=== PATIENT | male | born 1955 | race African-American/Black ===

== ENCOUNTER 2018-09-16 18:30 | Emergency (ER) | payer SELFPAY ==
[~2018-09-16] VITALS: Ht 175.3 cm; Wt 100.0 kg
[~2018-09-16 18:30] MED LIST: AMMO385C5 TP; CEPH750C9 PO; CLOP75TA52 PO; DOXY100T PO; FURO-92 PO; FURO40TA6 PO; GABA300C10 PO; LACT20SO13 PO; METR500T PO; OXYC5TAB3 PO; POTA10TA5 PO; RIFA550T4 PO; SPIR25TA PO; TRAM-47 PO
[2018-09-16 18:41] VITALS: BP 114/84
[2018-09-16 19:03] LABS: MEAN CORPUSCULAR HEMOGLOBIN 30.7 pg (27.5-34.5); MEAN CORPUSCULAR HGB CONC 33.6 g/dL (33.2-36.2); MEAN CORPUSCULAR VOLUME 91.5 fL (81-97); PLATELET COUNT 277 x10^3/uL (130-400); RED BLOOD COUNT 4.73 x10^6/uL (4.38-5.82); RED CELL DISTRIBUTION WIDTH 16.5 % (9.4-14.8)
[2018-09-16 19:14] LABS: ALANINE AMINOTRANSFERASE 26 U/L (12-78); ALBUMIN 2.2 g/dL (3.4-5.0); ANION GAP 5 mmol/L (5-15); CALCIUM 8.3 mg/dL (8.5-10.1); CHLORIDE 115 mmol/L (98-107); CREATININE 1.05 mg/dL (0.7-1.3)
[2018-09-16 19:18] LABS: ALKALINE PHOSPHATASE 130 U/L (45-117); BILIRUBIN,TOTAL 0.8 mg/dL (0.2-1.0); TOTAL PROTEIN 6.7 g/dL (6.4-8.2)
[2018-09-16 19:19] LABS: BASOPHILS # (AUTO) 0.03 x10^3/uL (0-0.1); BASOPHILS % (AUTO) 0 % (0-1); EOSINOPHILS # (AUTO) 3.19 x10^3/uL (0-0.4); EOSINOPHILS % (AUTO) 34 % (1-7); LYMPHOCYTES # (AUTO) 2.01 x10^3/uL (1-3.4); LYMPHOCYTES % (AUTO) 22 % (22-44); MD SCAN; MONOCYTES # (AUTO) 0.98 x10^3/uL (0.2-0.8); MONOCYTES % (AUTO) 11 % (2-9); NEUTROPHILS # (AUTO) 3.09 x10^3/uL (1.8-6.8); NEUTROPHILS % (AUTO) 33 % (42-75)
[2018-09-16] MEDS ORDERED: BACITRACIN ZINC OINT 500U/GM, 0.9 GM ONE ×2 (19:52→21:04)
--- NOTE | 2018-09-16 20:31 | NUR ---
MD aware of pts req for pain meds, no new orders recieved.
--- NOTE | 2018-09-16 20:53 | NUR ---
Ryanne gtz in [facility] - 09/16/18 at 2054 by VENITA Pt requesting "just a pill of morphine" for his pain,
--- NOTE | 2018-09-16 21:07 | NUR ---
Bilateral bandages applied to pts feet per md orders by asthma educator. Pt requesting cab voucher home.
--- NOTE | 2018-09-16 21:50 | NUR ---
Pt given warms clothes including new shirt, pants, and socks. Given taxi vocher to his given address per request. Pt encouraged to leave biohazard bag closed in ed as to not expose entire ed to bed bugs
== END 2018-09-16 21:52 | disposition home or self-care (01) ==
LOC: ED 21:46
DX: S91.101A Unspecified open wound of right great toe without damage to nail, initial encounter (principal); S91.104A Unspecified open wound of right lesser toe(s) without damage to nail, initial encounter; S91.102A Unspecified open wound of left great toe without damage to nail, initial encounter; S91.105A Unspecified open wound of left lesser toe(s) without damage to nail, initial encounter; S91.002A Unspecified open wound, left ankle, initial encounter; I11.0 Hypertensive heart disease with heart failure; I50.9 Heart failure, unspecified; Z86.79 Personal history of other diseases of the circulatory system; Z86.73 Personal history of transient ischemic attack (TIA), and cerebral infarction without residual deficits; Z59.0 Homelessness; X58.XXXA Exposure to other specified factors, initial encounter; Y93.89 Activity, other specified; Y92.89 Other specified places as the place of occurrence of the external cause; Y99.8 Other external cause status
CPT/HCPCS: 36415; 71045; 80053; 83880; 85025; 93005; 99284

== ENCOUNTER 2018-09-25 14:48 | Inpatient (IN) | payer MEDICAID, OTHER ==
[~2018-09-25] VITALS: Ht 177.8 cm; Wt 102.8 kg
[~2018-09-25 14:48] MED LIST changes: +ETOMIDATE 40 MG/20 ML ONE; +PROPOFOL 10 MG/ML, 100ML IV ONE
[2018-09-25] MEDS ORDERED: LORazepam 2 MG/ML, 1ML ONE (14:52)
[2018-09-25] MEDS ORDERED: SODIUM CHLORIDE 0.9% 1,000ML IVBOLUS ONE ×3 (15:00→16:30)
[2018-09-25] MEDS ORDERED: LORazepam 2 MG/ML, 1ML IVPush ONE ×2 (15:00→15:30)
[2018-09-25 15:15] LABS: BASOPHILS # (AUTO) 0.02 x10^3/uL (0-0.1); BASOPHILS % (AUTO) 0 % (0-1); EOSINOPHILS # (AUTO) 0.04 x10^3/uL (0-0.4); EOSINOPHILS % (AUTO) 0 % (1-7); LYMPHOCYTES # (AUTO) 0.77 x10^3/uL (1-3.4); LYMPHOCYTES % (AUTO) 6 % (22-44); MD NO; MEAN CORPUSCULAR HGB CONC 33.8 g/dL (33.2-36.2); MEAN CORPUSCULAR VOLUME 91.7 fL (81-97); MEAN PLATELET VOLUME 7.6 fL (7.4-10.4); MONOCYTES # (AUTO) 0.94 x10^3/uL (0.2-0.8); MONOCYTES % (AUTO) 7 % (2-9); NEUTROPHILS # (AUTO) 11.97 x10^3/uL (1.8-6.8); NEUTROPHILS % (AUTO) 87 % (42-75); PLATELET COUNT 188 x10^3/uL (130-400); RED BLOOD COUNT 4.71 x10^6/uL (4.38-5.82); RED CELL DISTRIBUTION WIDTH 17.2 % (9.4-14.8)
[2018-09-25 15:28] LABS: ALANINE AMINOTRANSFERASE 75 U/L (12-78); ALBUMIN 2.2 g/dL (3.4-5.0); CALCIUM 9.1 mg/dL (8.5-10.1); CHLORIDE 129 mmol/L (98-107); CREATININE 2.07 mg/dL (0.7-1.3)
[2018-09-25 15:30] LABS: INTERNATIONAL NORMALIZED RATIO 1.49 (0.93-1.1); PROTHROMBIN TIME 15.4 Seconds (9.6-11.5)
[2018-09-25] MEDS ORDERED: PLEASE ENTER HEIGHT AND WEIGHT MC SCH (15:30)
[2018-09-25 15:33] LABS: ALKALINE PHOSPHATASE 116 U/L (45-117); BILIRUBIN,TOTAL 2.1 mg/dL (0.2-1.0); TOTAL PROTEIN 7.4 g/dL (6.4-8.2); TROPONIN I 0.085 ng/mL (0.000-0.045)
[2018-09-25 15:42] LABS: ANION GAP 12 mmol/L (5-15); CREATINE KINASE, TOTAL 2205 U/L (39-308); THYROID STIMULATING HORMONE 0.896 mIU/L (0.358-3.740)
[2018-09-25 15:48] LABS: MICROSCOPIC INDICATED
[2018-09-25 15:49] LABS: CULTURE INDICATED? YES
--- NOTE | 2018-09-25 15:54 | NUR ---
BIB [facility] FOUND [facility] WAS CHECKED ON BY HOTEL MGT HAD NOT BEE SEEN FOR TWO DAYS RESPONDS TO PAIN ONLY ON ARRIVAL PUPILS PIN POINT AIRWAY CLEAR RESP MAINTAINED BY PT PT COLD TO TOUCH KNOWN ETOH USE OPEN WOUNDS BILAT FEET ARRIVE IV 22 R HAND 2ND IV PLACE L HAND WARM FLUIDS STARTED WARMING MEASURES STARTED W FULL MONITORING AND CORE TEMP ZAMORA PT TEMP ON ARRIVAL RECTAL 92.1
[2018-09-25 15:56] LABS: AMPHETAMINE SCREEN, URINE Positive (Negative); BARBITURATE SCREEN, URINE Negative (Negative); BENZODIAZEPINE SCREEN, URINE Negative (Negative); CANNABINOID SCREEN, URINE Positive (Negative); COCAINE SCREEN, URINE Negative (Negative); METHADONE SCREEN, URINE Negative (Negative); OPIATE SCREEN, URINE Negative (Negative)
--- NOTE | 2018-09-25 15:58 | NUR ---
SODIUM 168 PER LAB REPORTED TO ERP
--- NOTE | 2018-09-25 16:21 | NUR ---
REVIEWED PT BP W ERP TO HANG THIRD LTR FLUIDS
[2018-09-25] MEDS ORDERED: PHARMACOKINETIC CONSULTATION MC ONE (16:30)
[2018-09-25] MEDS ORDERED: PIPERACILLIN/TAZO/PMX 3.375GM 50 ML IVPB ONE (16:30)
[2018-09-25] MEDS ORDERED: VANCOMYCIN PER PHARMACY MC ONE (16:30)
[2018-09-25] MEDS ORDERED: VANCOMYCIN 2,000 MG in SODIUM CHLORIDE 0.9% 500 ML IV ONE (17:00)
--- NOTE | 2018-09-25 17:24 | NUR ---
HAVE ATTEMPTED ORAL CARE REVIEWED BP WITH ERP
[2018-09-25] MEDS ORDERED: NOREPINEPHRINE 4 MG in SODIUM CHLORIDE 0.9% 246 ML IV PRN ×2 (17:41→18:00)
[2018-09-25] MEDS ORDERED: SODIUM CHLORIDE 0.9% 1,000 ML IV SCH ×2 (17:52→22:00)
[2018-09-25] MEDS ORDERED: FENTANYL PF 100 MCG/2ML IV ONE (18:00)
[2018-09-25] MEDS ORDERED: ONDANSETRON 2MG/ML, 2ML IVPush PRN (18:00)
[2018-09-25] MEDS ORDERED: ETOMIDATE 20 MG/10 ML IV ONE (18:00)
[2018-09-25] MEDS ORDERED: ROCURONIUM 10 MG/ML,10ML IVPush ONE (18:00)
[2018-09-25] MEDS ORDERED: PHARMACY MAY ADJ FOR RENAL FX MC PRN (18:00)
[2018-09-25] MEDS ORDERED: FENTANYL PF 100 MCG/2ML ONE (18:03)
[2018-09-25 18:44] LABS: ANION GAP 7 mmol/L (5-15); CALCIUM 7.6 mg/dL (8.5-10.1); CHLORIDE 138 mmol/L (98-107); CREATININE 1.61 mg/dL (0.7-1.3)
--- NOTE | 2018-09-25 18:55 | NUR ---
SODIUM OF 170 REPORTED TO THE ERP ADMIT PULMONARY TO ADJUST FLUID
[2018-09-25 18:57] LABS: TROPONIN I 0.136 ng/mL (0.000-0.045)
--- NOTE | 2018-09-25 19:11 | NUR ---
AT APPROX 1740 DR SIMPSON TO THE BS DECISION TO INTUBATE AND CENTRAL LINE MADE AT 1800 PT INTUBATED 23 AT THE LIPS #8 TUBE UNDER RSI SAT MAINTAINED TO 90% THROUGHOUT THE PROCEDURE CENTRAL LINE COMPLETED AT 1830 A TRIPLE LUMEN IN THE RIJ NG 16 PLACED AT 1840 R NARE REPORT TO ULYSSES AT 1850
--- NOTE | 2018-09-25 19:46 | NUR ---
RECEIVED REPORT FROM CASSY AT 1845 AT BED SIDE PT WAS VENTED CENTRAL LINE WAS PLACED LEVOPHED WAS STARTED FOR SUPPORT BP 4 LITERS NS WAS INFUSED AT THIS TIME IV ABX VANCO WAS INFUSED VSS STABLE WITH LEVOPHED WHEN TIME FOR TRANSFER GIVEN REPORT TO MARIA C AT 1930 CRITICAL REPORT ( TROPONIN 0.136 ) REPORTED TO DR RAYMOND
[2018-09-25] MEDS ORDERED: VASOPRESSIN 100 UNIT in SODIUM CHLORIDE 0.9% 495 ML IV PRN (20:13)
[2018-09-25] MEDS ORDERED: PROPOFOL 100 ML IV PRN (20:13)
[2018-09-25] MEDS ORDERED: SENNA/DOCUSATE TABLET NG PRN (20:30)
[2018-09-25] MEDS ORDERED: SENNA 176 MG/5 ML ORAL SOL NG PRN (20:30)
[2018-09-25] MEDS ORDERED: PHARMACY MAY ADJ FOR RENAL FX MC SCH (20:30)
[2018-09-25] MEDS ORDERED: SODIUM CHLORIDE 0.9%, 250ML IV ONE (20:30)
[2018-09-25] MEDS ORDERED: LACTULOSE 20 GM/30 ML UDC NG PRN (20:30)
[2018-09-25] MEDS ORDERED: DEXTROSE 4 GM TAB.CHEW PO PRN (20:30)
[2018-09-25] MEDS ORDERED: GLUCAGON 1 MG IM PRN (20:30)
[2018-09-25] MEDS ORDERED: BISACODYL 10 MG SUPP PR PRN (20:30)
[2018-09-25] MEDS ORDERED: DEXTROSE 50%, 50ML SYRINGE IVPush PRN (20:30)
[2018-09-25] MEDS ORDERED: LIDOCAINE-MPF 1%, 2ML ENDO PRN (20:30)
[2018-09-25] MEDS: INSULIN LISPRO 100 UNITS/ML, PEN SQ-INSULIN SCH (20:58)
[2018-09-25 21:22] LABS: INTERNATIONAL NORMALIZED RATIO 1.55 (0.93-1.1)
[2018-09-25 21:23] LABS: ANION GAP 7 mmol/L (5-15); CALCIUM 7.9 mg/dL (8.5-10.1); CHLORIDE 136 mmol/L (98-107); CREATININE 1.68 mg/dL (0.7-1.3)
[2018-09-25 21:27] LABS: TROPONIN I 0.157 ng/mL (0.000-0.045)
[2018-09-25] MEDS ORDERED: SODIUM CHLORIDE 0.9%, 250ML IVBOLUS ONE (21:30)
[2018-09-25] MEDS: SODIUM CHLORIDE FLUSH 10ML SYR IVF SCH (21:35)
[2018-09-25 21:36] LABS: FREE T4 (FREE THYROXINE) 1.44 ng/dL (0.76-1.46); THYROID STIMULATING HORMONE 0.877 mIU/L (0.358-3.740)
[2018-09-25] MEDS: ALBUTEROL/IPRATROPIUM 2.5MG/0.5MG, 3 ML INLINE SCH (22:13)
[2018-09-25] MEDS ORDERED: LACTATED RINGERS 1,000 ML IVBOLUS ONE (22:30)
[2018-09-25] MEDS: AMPICILLIN/SULBACTAM 3 GM in SODIUM CHLORIDE 0.9% 100 ML IV SCH (22:44)
[2018-09-25] MEDS: NOREPINEPHRINE 4 MG in SODIUM CHLORIDE 0.9% 246 ML IV PRN (22:45)
[2018-09-26] MEDS: PROPOFOL 100 ML IV PRN ×3 (00:48→15:36)
[2018-09-26 01:45] LABS: TROPONIN I 0.185 ng/mL (0.000-0.045)
[2018-09-26 02:21] VITALS: BP 152/73
[2018-09-26] MEDS: ALBUTEROL/IPRATROPIUM 2.5MG/0.5MG, 3 ML INLINE SCH ×6 (02:29→22:32)
[2018-09-26] MEDS: NOREPINEPHRINE 4 MG in SODIUM CHLORIDE 0.9% 246 ML IV PRN ×3 (02:55→11:26)
[2018-09-26 03:17] LABS: ANION GAP 9 mmol/L (5-15); CALCIUM 7.7 mg/dL (8.5-10.1); CHLORIDE 137 mmol/L (98-107); CREATININE 1.87 mg/dL (0.7-1.3)
[2018-09-26 03:21] LABS: TROPONIN I 0.202 ng/mL (0.000-0.045)
[2018-09-26 04:00] VITALS: BP 100/42
[2018-09-26] MEDS: AMPICILLIN/SULBACTAM 3 GM in SODIUM CHLORIDE 0.9% 100 ML IV SCH (04:12)
[2018-09-26 04:52] LABS: MEAN CORPUSCULAR HEMOGLOBIN 30.9 pg (27.5-34.5); MEAN CORPUSCULAR HGB CONC 33.5 g/dL (33.2-36.2); MEAN CORPUSCULAR VOLUME 92.2 fL (81-97); MEAN PLATELET VOLUME 7.9 fL (7.4-10.4); PLATELET COUNT 164 x10^3/uL (130-400); RED BLOOD COUNT 3.97 x10^6/uL (4.38-5.82); RED CELL DISTRIBUTION WIDTH 16.8 % (9.4-14.8)
[2018-09-26 05:03] LABS: ALBUMIN 1.8 g/dL (3.4-5.0); ANION GAP 8 mmol/L (5-15); CALCIUM 7.8 mg/dL (8.5-10.1); CHLORIDE 137 mmol/L (98-107)
[2018-09-26 05:20] LABS: ALANINE AMINOTRANSFERASE 63 U/L (12-78); ALKALINE PHOSPHATASE 103 U/L (45-117); BILIRUBIN,TOTAL 1.7 mg/dL (0.2-1.0); CREATINE KINASE, TOTAL 1047 U/L (39-308); CREATININE 1.77 mg/dL (0.7-1.3); TOTAL PROTEIN 5.9 g/dL (6.4-8.2)
[2018-09-26 05:44] LABS: BASOPHILS # (AUTO) 0.04 x10^3/uL (0-0.1); BASOPHILS % (AUTO) 0 % (0-1); EOSINOPHILS # (AUTO) 0.55 x10^3/uL (0-0.4); EOSINOPHILS % (AUTO) 4 % (1-7); LYMPHOCYTES # (AUTO) 1.13 x10^3/uL (1-3.4); LYMPHOCYTES % (AUTO) 9 % (22-44); MD SCAN; MONOCYTES # (AUTO) 1.09 x10^3/uL (0.2-0.8); MONOCYTES % (AUTO) 8 % (2-9); NEUTROPHILS # (AUTO) 10.47 x10^3/uL (1.8-6.8); NEUTROPHILS % (AUTO) 79 % (42-75)
[2018-09-26] MEDS: DEXTROSE 5% 500 ML IV SCH ×2 (06:11→07:37)
[2018-09-26] MEDS: INSULIN LISPRO 100 UNITS/ML, PEN SQ-INSULIN SCH ×4 (07:00→21:00)
[2018-09-26] MEDS: SODIUM CHLORIDE FLUSH 10ML SYR IVF SCH ×2 (07:37→21:30)
[2018-09-26] MEDS: FAMOTIDINE 20 MG/2 ML IVPush SCH (07:37)
[2018-09-26] MEDS ORDERED: ZOSYN PER PHARMACY MC PRN (08:00)
[2018-09-26] MEDS ORDERED: PANTOPRAZOLE 40 MG IV IV SCH (09:00)
[2018-09-26] MEDS ORDERED: VANCOMYCIN PER PHARMACY MC PRN (09:30)
[2018-09-26] MEDS ORDERED: PHARMACOKINETIC MONITORING MC PRN (10:00)
[2018-09-26] MEDS ORDERED: VANCOMYCIN 2,000 MG in SODIUM CHLORIDE 0.9% 500 ML IV ONE (10:00)
[2018-09-26] MEDS ORDERED: PHARMACOKINETIC CONSULTATION MC ONE (10:00)
[2018-09-26] MEDS: THIAMINE 200 MG in SODIUM CHLORIDE 0.9% 50 ML IV SCH (10:03)
[2018-09-26] MEDS: PIPERACILLIN/TAZO/PMX 3.375GM 50 ML IV SCH ×3 (10:03→22:20)
[2018-09-26] MEDS: LACTATED RINGERS 1,000 ML IV SCH ×3 (10:04→21:30)
[2018-09-26 11:56] LABS: ANION GAP 8 mmol/L (5-15); CALCIUM 7.8 mg/dL (8.5-10.1); CHLORIDE 136 mmol/L (98-107); CREATININE 1.82 mg/dL (0.7-1.3)
[2018-09-26 11:57] LABS: CULTURE INDICATED? YES; MICROSCOPIC INDICATED
[2018-09-26] MEDS: FENTANYL PF 100 MCG/2ML IVPush PRN (12:25)
--- NOTE | 2018-09-26 13:05 | NUR ---
TF GOAL: w/ propofol: PROMOTE @ 65ML/HR off propofol: PROMOTE @ 70ML/HR
[2018-09-26] MEDS ORDERED: FENTANYL PF 2,500 MCG in SODIUM CHLORIDE 0.9% 200 ML IV PRN (14:00)
[2018-09-26] MEDS ORDERED: VASOPRESSIN 100 UNIT in SODIUM CHLORIDE 0.9% 495 ML IV PRN (15:30)
[2018-09-26] MEDS ORDERED: SODIUM CHLORIDE 0.9% 1,000 ML IV SCH (17:52)
[2018-09-26] MEDS: NOREPINEPHRINE 8 MG in SODIUM CHLORIDE 0.9% 242 ML IV PRN (18:05)
[2018-09-26] MEDS: HYDROCORTISONE 100 MG INJ. IVPush SCH (18:05)
[2018-09-26] MEDS: HEPARIN 5,000 UNITS/ML, 1ML SQ SCH (18:06)
[2018-09-26] MEDS ORDERED: HYDROCORTISONE 100 MG INJ. IVPush SCH (21:00)
[2018-09-27] MEDS: HYDROCORTISONE 100 MG INJ. IVPush SCH ×4 (00:41→18:14)
[2018-09-27] MEDS: HEPARIN 5,000 UNITS/ML, 1ML SQ SCH ×3 (02:17→18:14)
[2018-09-27] MEDS: ALBUTEROL/IPRATROPIUM 2.5MG/0.5MG, 3 ML INLINE SCH ×6 (02:28→22:40)
[2018-09-27] MEDS: PIPERACILLIN/TAZO/PMX 3.375GM 50 ML IV SCH ×4 (03:43→20:50)
[2018-09-27 04:00] VITALS: BP 109/46
[2018-09-27 04:18] LABS: MEAN CORPUSCULAR HEMOGLOBIN 30.6 pg (27.5-34.5); MEAN CORPUSCULAR HGB CONC 33.5 g/dL (33.2-36.2); MEAN CORPUSCULAR VOLUME 91.4 fL (81-97); MEAN PLATELET VOLUME 7.9 fL (7.4-10.4); PLATELET COUNT 126 x10^3/uL (130-400); RED BLOOD COUNT 3.94 x10^6/uL (4.38-5.82); RED CELL DISTRIBUTION WIDTH 17.9 % (9.4-14.8)
[2018-09-27 04:27] LABS: MD YES
[2018-09-27 04:30] LABS: <PLATELET ESTIMATE> DECREASED; <PLT MORPHOLOGY> NORMAL PLT MORPH; <RBC MORPHOLOGY> NORMAL; BANDS%(MANUAL) 3 % (0-7); LYMPHS% (MANUAL) 5 % (22-44); MONOS% (MANUAL) 6 % (2-9); SEGS% (MANUAL) 86 % (42-75)
[2018-09-27 04:35] LABS: TROPONIN I 0.419 ng/mL (0.000-0.045); VANCOMYCIN,RANDOM 27.4 mcg/mL
[2018-09-27] MEDS: LACTATED RINGERS 1,000 ML IV SCH ×2 (06:07→12:12)
[2018-09-27 06:38] LABS: ALBUMIN 1.7 g/dL (3.4-5.0); ANION GAP 9 mmol/L (5-15); CALCIUM 8.1 mg/dL (8.5-10.1); CHLORIDE 134 mmol/L (98-107)
[2018-09-27 06:41] LABS: ALANINE AMINOTRANSFERASE 69 U/L (12-78); ALKALINE PHOSPHATASE 91 U/L (45-117); BILIRUBIN,TOTAL 1.9 mg/dL (0.2-1.0); CREATININE 1.88 mg/dL (0.7-1.3); TOTAL PROTEIN 6.1 g/dL (6.4-8.2)
[2018-09-27] MEDS: INSULIN LISPRO 100 UNITS/ML, PEN SQ-INSULIN SCH (07:00)
[2018-09-27] MEDS: THIAMINE 200 MG in SODIUM CHLORIDE 0.9% 50 ML IV SCH (09:33)
[2018-09-27] MEDS: FAMOTIDINE 20 MG/2 ML IVPush SCH (09:33)
[2018-09-27] MEDS: SODIUM CHLORIDE FLUSH 10ML SYR IVF SCH ×2 (09:33→20:49)
[2018-09-27] MEDS ORDERED: PIPERONYL BUTOXIDE/PYRETHRINS SHAMPOO TP SCH (10:30)
[2018-09-27] MEDS ORDERED: VANCOMYCIN 2,000 MG in SODIUM CHLORIDE 0.9% 500 ML IV ONE (11:00)
[2018-09-27] MEDS: NOREPINEPHRINE 8 MG in SODIUM CHLORIDE 0.9% 242 ML IV PRN (15:24)
[2018-09-27] MEDS: PROPOFOL 100 ML IV PRN ×2 (16:12→22:54)
[2018-09-28] MEDS: HYDROCORTISONE 100 MG INJ. IVPush SCH ×2 (00:14→05:42)
[2018-09-28] MEDS: HEPARIN 5,000 UNITS/ML, 1ML SQ SCH ×4 (01:01→19:52)
[2018-09-28] MEDS: PROPOFOL 100 ML IV PRN ×2 (03:29→09:19)
[2018-09-28] MEDS: PIPERACILLIN/TAZO/PMX 3.375GM 50 ML IV SCH ×4 (03:29→22:12)
[2018-09-28] MEDS: ALBUTEROL/IPRATROPIUM 2.5MG/0.5MG, 3 ML INLINE SCH ×6 (03:38→22:20)
[2018-09-28 03:48] LABS: ANION GAP 6 mmol/L (5-15); CALCIUM 8.3 mg/dL (8.5-10.1); CHLORIDE 138 mmol/L (98-107); TRIGLYCERIDES 140 mg/dL (50-200)
[2018-09-28 04:27] VITALS: BP 101/50
[2018-09-28 06:05] LABS: MD YES; MEAN CORPUSCULAR HEMOGLOBIN 31.1 pg (27.5-34.5); MEAN CORPUSCULAR HGB CONC 33.8 g/dL (33.2-36.2); MEAN CORPUSCULAR VOLUME 92.2 fL (81-97); PLATELET COUNT 97 x10^3/uL (130-400); RED CELL DISTRIBUTION WIDTH 17.8 % (9.4-14.8)
[2018-09-28 06:08] LABS: ANISOCYTOSIS 1+; BAND#(MANUAL) 0.39 x10^3/uL; BANDS%(MANUAL) 3 % (0-7); LYMPH#(MANUAL) 1.04 x10^3/uL (1-3.4); LYMPHS% (MANUAL) 8 % (22-44); MONOS#(MANUAL) 0.78 x10^3/uL (0.3-2.7); MONOS% (MANUAL) 6 % (2-9); NRBC % (MANUAL) 2 % (0-1); POLYCHROMASIA 1+; SEG#(MANUAL) 10.79 x10^3/uL (1.8-6.8); SEGS% (MANUAL) 83 % (42-75)
[2018-09-28 06:09] LABS: <PLATELET ESTIMATE> DECREASED; <PLT MORPHOLOGY> NORMAL PLT MORPH
[2018-09-28 06:46] LABS: ALANINE AMINOTRANSFERASE 57 U/L (12-78); ALBUMIN 1.7 g/dL (3.4-5.0); ANION GAP 5 mmol/L (5-15); CALCIUM 8.3 mg/dL (8.5-10.1); CHLORIDE 138 mmol/L (98-107); CREATININE 1.87 mg/dL (0.7-1.3)
[2018-09-28 06:49] LABS: ALKALINE PHOSPHATASE 83 U/L (45-117); BILIRUBIN,TOTAL 1.5 mg/dL (0.2-1.0)
[2018-09-28] MEDS: POTASSIUM CHLORIDE 20 MEQ in D5%-0.2% NACL 1,000 ML IV SCH ×2 (07:58→19:42)
[2018-09-28] MEDS ORDERED: LACTATED RINGERS 1,000 ML IV SCH (08:30)
[2018-09-28] MEDS: SODIUM CHLORIDE FLUSH 10ML SYR IVF SCH ×2 (09:15→21:03)
[2018-09-28] MEDS: THIAMINE 200 MG in SODIUM CHLORIDE 0.9% 50 ML IV SCH ×2 (09:15→13:19)
[2018-09-28] MEDS: FAMOTIDINE 20 MG/2 ML IVPush SCH (09:16)
[2018-09-28] MEDS ORDERED: VANCOMYCIN 2,000 MG in SODIUM CHLORIDE 0.9% 500 ML IV ONE (11:00)
[2018-09-28] MEDS: DIAZEPAM 5 MG/ML, 10ML VIAL IVPush SCH ×4 (11:26→21:03)
[2018-09-28] MEDS: CEFAZOLIN 2,000 MG in SODIUM CHLORIDE 0.9% 50 ML IV SCH ×2 (13:18→19:52)
[2018-09-28] MEDS ORDERED: FUROSEMIDE 40 MG/4 ML IV ONE (15:30)
[2018-09-28 17:04] LABS: HIT RESULT POSITIVE (NEGATIVE)
[2018-09-28] MEDS: FENTANYL PF 100 MCG/2ML IVPush PRN (23:19)
[2018-09-29] MEDS: PROPOFOL 100 ML IV PRN (00:08)
[2018-09-29] MEDS: DIAZEPAM 5 MG/ML, 10ML VIAL IVPush SCH ×6 (01:19→20:53)
[2018-09-29] MEDS: ALBUTEROL/IPRATROPIUM 2.5MG/0.5MG, 3 ML INLINE SCH ×6 (02:16→23:00)
[2018-09-29] MEDS: PIPERACILLIN/TAZO/PMX 3.375GM 50 ML IV SCH (04:06)
[2018-09-29 04:28] LABS: MEAN CORPUSCULAR HGB CONC 33.4 g/dL (33.2-36.2); MEAN CORPUSCULAR VOLUME 92.9 fL (81-97); MEAN PLATELET VOLUME 8.1 fL (7.4-10.4); PLATELET COUNT 95 x10^3/uL (130-400); RED BLOOD COUNT 3.48 x10^6/uL (4.38-5.82); RED CELL DISTRIBUTION WIDTH 18.1 % (9.4-14.8)
[2018-09-29 04:32] LABS: ANION GAP 5 mmol/L (5-15); CHLORIDE 136 mmol/L (98-107)
[2018-09-29] MEDS: CEFAZOLIN 2,000 MG in SODIUM CHLORIDE 0.9% 50 ML IV SCH (04:47)
[2018-09-29] MEDS: POTASSIUM CHLORIDE 20 MEQ in D5%-0.2% NACL 1,000 ML IV SCH ×3 (05:28→17:03)
[2018-09-29] MEDS: NOREPINEPHRINE 8 MG in SODIUM CHLORIDE 0.9% 242 ML IV PRN (05:29)
[2018-09-29 05:40] LABS: BASOPHILS # (AUTO) 0.06 x10^3/uL (0-0.1); BASOPHILS % (AUTO) 1 % (0-1); EOSINOPHILS # (AUTO) 0.13 x10^3/uL (0-0.4); EOSINOPHILS % (AUTO) 1 % (1-7); LYMPHOCYTES # (AUTO) 1.11 x10^3/uL (1-3.4); LYMPHOCYTES % (AUTO) 9 % (22-44); MD SCAN; MONOCYTES # (AUTO) 0.81 x10^3/uL (0.2-0.8); MONOCYTES % (AUTO) 7 % (2-9); NEUTROPHILS # (AUTO) 10.45 x10^3/uL (1.8-6.8); NEUTROPHILS % (AUTO) 83 % (42-75)
[2018-09-29] MEDS: DEXMEDETOMIDINE 1,000 MCG in SODIUM CHLORIDE 0.9% 240 ML IV PRN (07:44)
[2018-09-29] MEDS: FONDAPARINUX 2.5 MG/0.5 ML SQ SCH (08:39)
[2018-09-29] MEDS: THIAMINE 200 MG in SODIUM CHLORIDE 0.9% 50 ML IV SCH ×2 (09:00→09:03)
[2018-09-29] MEDS: ERTAPENEM 1 GM in SODIUM CHLORIDE 0.9% 50 ML IV SCH (09:04)
[2018-09-29] MEDS: FAMOTIDINE 20 MG/2 ML IVPush SCH (09:04)
[2018-09-29] MEDS: SODIUM CHLORIDE FLUSH 10ML SYR IVF SCH ×2 (09:04→20:52)
[2018-09-29] MEDS: ALBUMIN HUMAN 25% 100 ML IV SCH ×3 (09:04→23:50)
[2018-09-30] MEDS: DIAZEPAM 5 MG/ML, 10ML VIAL IVPush SCH ×2 (01:09→04:18)
[2018-09-30] MEDS: ALBUTEROL/IPRATROPIUM 2.5MG/0.5MG, 3 ML INLINE SCH ×6 (02:55→22:45)
[2018-09-30] MEDS: POTASSIUM CHLORIDE 20 MEQ in D5%-0.2% NACL 1,000 ML IV SCH (04:22)
[2018-09-30 05:44] LABS: ANION GAP 6 mmol/L (5-15); CALCIUM 7.6 mg/dL (8.5-10.1); CHLORIDE 132 mmol/L (98-107)
[2018-09-30 05:45] LABS: CREATININE 2.27 mg/dL (0.7-1.3)
[2018-09-30 06:13] LABS: MD YES; MEAN CORPUSCULAR HEMOGLOBIN 31.8 pg (27.5-34.5); MEAN CORPUSCULAR HGB CONC 34.2 g/dL (33.2-36.2); MEAN CORPUSCULAR VOLUME 92.9 fL (81-97); MEAN PLATELET VOLUME 8.7 fL (7.4-10.4); PLATELET COUNT 74 x10^3/uL (130-400); RED CELL DISTRIBUTION WIDTH 17.8 % (9.4-14.8)
[2018-09-30 06:16] LABS: <PLATELET ESTIMATE> DECREASED; <PLT MORPHOLOGY> NORMAL PLT MORPH; ANISOCYTOSIS 1+; BAND#(MANUAL) 0.08 x10^3/uL; BANDS%(MANUAL) 1 % (0-7); EOS% (MANUAL) 6 % (1-7); LYMPH#(MANUAL) 3.49 x10^3/uL (1-3.4); LYMPHS% (MANUAL) 42 % (22-44); MONOS#(MANUAL) 0.83 x10^3/uL (0.3-2.7); MONOS% (MANUAL) 10 % (2-9); NRBC % (MANUAL) 1 % (0-1); SEGS% (MANUAL) 41 % (42-75)
[2018-09-30 06:17] LABS: POLYCHROMASIA 1+
[2018-09-30] MEDS: ALBUMIN HUMAN 25% 100 ML IV SCH ×2 (08:05→15:47)
[2018-09-30] MEDS: FAMOTIDINE 20 MG/2 ML IVPush SCH (08:05)
[2018-09-30] MEDS: DEXTROSE 5% 1,000 ML IV SCH ×2 (08:05→17:22)
[2018-09-30] MEDS: ERTAPENEM 1 GM in SODIUM CHLORIDE 0.9% 50 ML IV SCH (08:53)
[2018-09-30] MEDS: THIAMINE 200 MG in SODIUM CHLORIDE 0.9% 50 ML IV SCH (10:10)
[2018-09-30] MEDS: FONDAPARINUX 2.5 MG/0.5 ML SQ SCH (10:10)
[2018-09-30] MEDS: SODIUM CHLORIDE FLUSH 10ML SYR IVF SCH ×2 (10:11→20:16)
[2018-09-30] MEDS ORDERED: PIPERONYL BUTOXIDE/PYRETHRINS SHAMPOO TP SCH (15:00)
[2018-09-30] MEDS: DEXMEDETOMIDINE 1,000 MCG in SODIUM CHLORIDE 0.9% 240 ML IV PRN (15:18)
[2018-10-01] MEDS: ALBUMIN HUMAN 25% 100 ML IV SCH ×3 (00:18→16:04)
[2018-10-01] MEDS: ALBUTEROL/IPRATROPIUM 2.5MG/0.5MG, 3 ML INLINE SCH ×6 (02:30→22:31)
[2018-10-01] MEDS: DEXTROSE 5% 1,000 ML IV SCH ×3 (02:30→18:47)
[2018-10-01 05:06] LABS: ANION GAP 6 mmol/L (5-15); CALCIUM 8.1 mg/dL (8.5-10.1); CHLORIDE 127 mmol/L (98-107); CREATININE 1.82 mg/dL (0.7-1.3); TRIGLYCERIDES 56 mg/dL (50-200)
[2018-10-01 05:07] LABS: MEAN CORPUSCULAR HEMOGLOBIN 30.3 pg (27.5-34.5); MEAN CORPUSCULAR HGB CONC 32.3 g/dL (33.2-36.2); MEAN CORPUSCULAR VOLUME 93.7 fL (81-97); RED BLOOD COUNT 3.14 x10^6/uL (4.38-5.82); RED CELL DISTRIBUTION WIDTH 17.6 % (9.4-14.8)
[2018-10-01 05:50] LABS: MD YES; MEAN PLATELET VOLUME 8.9 fL (7.4-10.4); PLATELET COUNT 60 x10^3/uL (130-400)
[2018-10-01 05:52] LABS: BASOS#(MANUAL) 0.07 x10^3/uL (0-0.1); BASOS% (MANUAL) 1 % (0-1); EOS#(MANUAL) 0.95 x10^3/uL (0.0-0.4); EOS% (MANUAL) 14 % (1-7); LYMPH#(MANUAL) 2.58 x10^3/uL (1-3.4); LYMPHS% (MANUAL) 38 % (22-44); MONOS#(MANUAL) 0.41 x10^3/uL (0.3-2.7); MONOS% (MANUAL) 6 % (2-9); SEG#(MANUAL) 2.79 x10^3/uL (1.8-6.8); SEGS% (MANUAL) 41 % (42-75)
[2018-10-01 05:53] LABS: <PLATELET ESTIMATE> DECREASED; <PLT MORPHOLOGY> NORMAL PLT MORPH; ANISOCYTOSIS 1+; POLYCHROMASIA 1+
[2018-10-01] MEDS: SODIUM CHLORIDE FLUSH 10ML SYR IVF SCH ×2 (07:56→20:03)
[2018-10-01] MEDS: FAMOTIDINE 20 MG/2 ML IVPush SCH (07:56)
[2018-10-01] MEDS ORDERED: FUROSEMIDE 40 MG/4 ML IV ONE (08:00)
[2018-10-01] MEDS: FONDAPARINUX 2.5 MG/0.5 ML SQ SCH (09:33)
[2018-10-01] MEDS: THIAMINE 200 MG in SODIUM CHLORIDE 0.9% 50 ML IV SCH (09:33)
[2018-10-01] MEDS: LACTULOSE 20 GM/30 ML UDC PO SCH ×2 (09:33→20:03)
[2018-10-01] MEDS: POTASSIUM CHLORIDE 20 MEQ PACKET PO SCH ×2 (09:47→20:03)
[2018-10-01] MEDS: ERTAPENEM 1 GM in SODIUM CHLORIDE 0.9% 50 ML IV SCH (09:57)
[2018-10-01] MEDS: DEXMEDETOMIDINE 1,000 MCG in SODIUM CHLORIDE 0.9% 240 ML IV PRN (15:06)
[2018-10-01] MEDS: FENTANYL PF 100 MCG/2ML IVPush PRN (20:16)
[2018-10-02] MEDS: ALBUMIN HUMAN 25% 100 ML IV SCH ×3 (00:36→17:02)
[2018-10-02] MEDS: ALBUTEROL/IPRATROPIUM 2.5MG/0.5MG, 3 ML INLINE SCH ×6 (02:36→22:00)
[2018-10-02] MEDS: DEXTROSE 5% 1,000 ML IV SCH (02:46)
[2018-10-02] MEDS: DEXMEDETOMIDINE 1,000 MCG in SODIUM CHLORIDE 0.9% 240 ML IV PRN (02:47)
[2018-10-02 05:11] LABS: MEAN CORPUSCULAR HEMOGLOBIN 32.1 pg (27.5-34.5); MEAN CORPUSCULAR HGB CONC 34.3 g/dL (33.2-36.2); MEAN CORPUSCULAR VOLUME 93.7 fL (81-97); RED BLOOD COUNT 2.96 x10^6/uL (4.38-5.82); RED CELL DISTRIBUTION WIDTH 17.6 % (9.4-14.8)
[2018-10-02 05:29] LABS: ANION GAP 8 mmol/L (5-15); CHLORIDE 122 mmol/L (98-107); CREATININE 1.46 mg/dL (0.7-1.3)
[2018-10-02 05:33] LABS: MD YES; MEAN PLATELET VOLUME 9.4 fL (7.4-10.4); PLATELET COUNT 61 x10^3/uL (130-400)
[2018-10-02 05:38] LABS: ANISOCYTOSIS 1+; EOS#(MANUAL) 0.76 x10^3/uL (0.0-0.4); EOS% (MANUAL) 12 % (1-7); LYMPH#(MANUAL) 1.32 x10^3/uL (1-3.4); LYMPHS% (MANUAL) 21 % (22-44); MONOS#(MANUAL) 0.69 x10^3/uL (0.3-2.7); MONOS% (MANUAL) 11 % (2-9); MYELOCYTES# (MANUAL) 0.13 x10^3/uL (0-0); MYELOCYTES% (MANUAL) 2 % (0-0); POLYCHROMASIA 1+; REACTIVE LYMPHS # (MANUAL) 0.06 x10^3/uL (0-0); REACTIVE LYMPHS % (MANUAL) 1 % (0-0); SEG#(MANUAL) 3.34 x10^3/uL (1.8-6.8); SEGS% (MANUAL) 53 % (42-75)
[2018-10-02 05:39] LABS: <PLATELET ESTIMATE> DECREASED; LARGE PLATELETS 1+
[2018-10-02] MEDS: FENTANYL PF 100 MCG/2ML IVPush PRN (06:45)
[2018-10-02] MEDS ORDERED: DEXTROSE 5% 1,000 ML IV SCH (07:00)
[2018-10-02] MEDS ORDERED: FUROSEMIDE 20 MG/2 ML ONE (07:48)
[2018-10-02] MEDS: ERTAPENEM 1 GM in SODIUM CHLORIDE 0.9% 50 ML IV SCH (08:03)
[2018-10-02] MEDS: FUROSEMIDE 20 MG/2 ML IV SCH ×2 (08:03→17:02)
[2018-10-02] MEDS: PROPOFOL 100 ML IV PRN ×5 (08:21→23:55)
[2018-10-02] MEDS: FONDAPARINUX 2.5 MG/0.5 ML SQ SCH (08:30)
[2018-10-02] MEDS: LACTULOSE 20 GM/30 ML UDC PO SCH ×2 (08:30→21:20)
[2018-10-02] MEDS: POTASSIUM CHLORIDE 10% 40 MEQ/30 ML UDC PO SCH ×2 (08:30→21:20)
[2018-10-02] MEDS: FAMOTIDINE 20 MG/2 ML IVPush SCH (08:31)
[2018-10-02] MEDS: SODIUM CHLORIDE FLUSH 10ML SYR IVF SCH ×2 (08:31→21:21)
[2018-10-02] MEDS: QUETIAPINE 25MG TABLET NG SCH ×2 (09:00→17:02)
[2018-10-02] MEDS: THIAMINE 200 MG in SODIUM CHLORIDE 0.9% 50 ML IV SCH (10:41)
[2018-10-02] MEDS ORDERED: GADOBUTROL 10 MMOL/10 ML PFS ONE (15:19)
[2018-10-02] MEDS: FAMOTIDINE 20 MG TABLET PO SCH (21:20)
[2018-10-03] MEDS: ALBUMIN HUMAN 25% 100 ML IV SCH ×3 (01:41→17:21)
[2018-10-03] MEDS: QUETIAPINE 25MG TABLET NG SCH ×3 (01:42→17:21)
[2018-10-03] MEDS: ALBUTEROL/IPRATROPIUM 2.5MG/0.5MG, 3 ML INLINE SCH ×6 (02:00→22:00)
[2018-10-03 04:38] LABS: MEAN CORPUSCULAR HEMOGLOBIN 31.8 pg (27.5-34.5); MEAN CORPUSCULAR HGB CONC 33.9 g/dL (33.2-36.2); MEAN CORPUSCULAR VOLUME 93.8 fL (81-97); MEAN PLATELET VOLUME 9.6 fL (7.4-10.4); PLATELET COUNT 72 x10^3/uL (130-400); RED BLOOD COUNT 2.86 x10^6/uL (4.38-5.82); RED CELL DISTRIBUTION WIDTH 17.2 % (9.4-14.8)
[2018-10-03] MEDS: PROPOFOL 100 ML IV PRN ×4 (04:38→20:59)
[2018-10-03 04:41] LABS: ANION GAP 4 mmol/L (5-15); CALCIUM 8.1 mg/dL (8.5-10.1); CHLORIDE 124 mmol/L (98-107)
[2018-10-03 04:43] LABS: CREATININE 1.41 mg/dL (0.7-1.3)
[2018-10-03 05:37] LABS: MD YES
[2018-10-03 05:39] LABS: EOS#(MANUAL) 0.67 x10^3/uL (0.0-0.4); EOS% (MANUAL) 9 % (1-7); LYMPH#(MANUAL) 1.11 x10^3/uL (1-3.4); LYMPHS% (MANUAL) 15 % (22-44); MONOS#(MANUAL) 0.44 x10^3/uL (0.3-2.7); MONOS% (MANUAL) 6 % (2-9); SEG#(MANUAL) 5.18 x10^3/uL (1.8-6.8); SEGS% (MANUAL) 70 % (42-75)
[2018-10-03 05:40] LABS: <PLATELET ESTIMATE> DECREASED; ANISOCYTOSIS 1+; POLYCHROMASIA 1+
[2018-10-03 05:41] LABS: LARGE PLATELETS 1+
[2018-10-03] MEDS ORDERED: FUROSEMIDE 20 MG/2 ML IV ONE (08:30)
[2018-10-03] MEDS: ERTAPENEM 1 GM in SODIUM CHLORIDE 0.9% 50 ML IV SCH (09:36)
[2018-10-03] MEDS: FONDAPARINUX 2.5 MG/0.5 ML SQ SCH (09:36)
[2018-10-03] MEDS: FAMOTIDINE 20 MG TABLET PO SCH (09:37)
[2018-10-03] MEDS: SODIUM CHLORIDE FLUSH 10ML SYR IVF SCH ×2 (09:37→20:59)
[2018-10-03] MEDS: THIAMINE 200 MG in SODIUM CHLORIDE 0.9% 50 ML IV SCH (10:32)
[2018-10-03] MEDS: LACTULOSE 20 GM/30 ML UDC PO SCH (10:32)
[2018-10-03] MEDS: DEXTROSE 5% 1,000 ML IV SCH (10:32)
[2018-10-03] MEDS: METOCLOPRAMIDE 5 MG/ML, 2ML IVPush SCH (20:57)
[2018-10-03] MEDS: FUROSEMIDE 40 MG/4 ML IV SCH (20:59)
[2018-10-04] MEDS: PROPOFOL 100 ML IV PRN ×4 (00:20→23:35)
[2018-10-04] MEDS: DEXTROSE 5% 1,000 ML IV SCH ×2 (00:28→09:32)
[2018-10-04] MEDS: ALBUMIN HUMAN 25% 100 ML IV SCH ×3 (01:36→21:31)
[2018-10-04] MEDS: QUETIAPINE 25MG TABLET NG SCH ×2 (01:37→09:30)
[2018-10-04] MEDS: ALBUTEROL/IPRATROPIUM 2.5MG/0.5MG, 3 ML INLINE SCH ×6 (02:00→22:00)
[2018-10-04] MEDS: METOCLOPRAMIDE 5 MG/ML, 2ML IVPush SCH ×5 (04:06→23:41)
[2018-10-04 04:37] LABS: MEAN CORPUSCULAR HEMOGLOBIN 31.7 pg (27.5-34.5); MEAN CORPUSCULAR HGB CONC 33.7 g/dL (33.2-36.2); MEAN CORPUSCULAR VOLUME 93.9 fL (81-97); MEAN PLATELET VOLUME 9.5 fL (7.4-10.4); PLATELET COUNT 81 x10^3/uL (130-400); RED BLOOD COUNT 2.81 x10^6/uL (4.38-5.82); RED CELL DISTRIBUTION WIDTH 17.2 % (9.4-14.8)
[2018-10-04 04:43] LABS: ANION GAP 5 mmol/L (5-15); CALCIUM 8.5 mg/dL (8.5-10.1); CHLORIDE 121 mmol/L (98-107); CREATININE 1.17 mg/dL (0.7-1.3); TRIGLYCERIDES 77 mg/dL (50-200)
[2018-10-04 05:11] LABS: MD YES
[2018-10-04 05:15] LABS: <PLATELET ESTIMATE> DECREASED; ANISOCYTOSIS 1+; BAND#(MANUAL) 0.17 x10^3/uL; BANDS%(MANUAL) 3 % (0-7); EOS#(MANUAL) 0.61 x10^3/uL (0.0-0.4); EOS% (MANUAL) 11 % (1-7); LYMPH#(MANUAL) 0.94 x10^3/uL (1-3.4); LYMPHS% (MANUAL) 17 % (22-44); MONOS#(MANUAL) 0.22 x10^3/uL (0.3-2.7); MONOS% (MANUAL) 4 % (2-9); POLYCHROMASIA 1+; REACTIVE LYMPHS # (MANUAL) 0.06 x10^3/uL (0-0); REACTIVE LYMPHS % (MANUAL) 1 % (0-0); SEG#(MANUAL) 3.52 x10^3/uL (1.8-6.8); SEGS% (MANUAL) 64 % (42-75)
[2018-10-04 05:16] LABS: LARGE PLATELETS 1+
[2018-10-04] MEDS: PANTOPRAZOLE 40 MG IV IVPush SCH (09:30)
[2018-10-04] MEDS: ERTAPENEM 1 GM in SODIUM CHLORIDE 0.9% 50 ML IV SCH (09:30)
[2018-10-04] MEDS: FUROSEMIDE 40 MG/4 ML IV SCH ×2 (09:30→21:31)
[2018-10-04] MEDS: FONDAPARINUX 2.5 MG/0.5 ML SQ SCH (09:31)
[2018-10-04] MEDS: SODIUM CHLORIDE FLUSH 10ML SYR IVF SCH ×2 (09:31→21:31)
[2018-10-04] MEDS: THIAMINE 200 MG in SODIUM CHLORIDE 0.9% 50 ML IV SCH (10:38)
[2018-10-04] MEDS ORDERED: QUETIAPINE 25MG TABLET NG SCH (21:00)
[2018-10-05] MEDS: ALBUTEROL/IPRATROPIUM 2.5MG/0.5MG, 3 ML INLINE SCH ×6 (02:00→22:00)
[2018-10-05 04:08] LABS: MEAN CORPUSCULAR HEMOGLOBIN 31.9 pg (27.5-34.5); MEAN CORPUSCULAR HGB CONC 34.3 g/dL (33.2-36.2); MEAN CORPUSCULAR VOLUME 93.1 fL (81-97); MEAN PLATELET VOLUME 9.2 fL (7.4-10.4); PLATELET COUNT 94 x10^3/uL (130-400); RED BLOOD COUNT 2.71 x10^6/uL (4.38-5.82); RED CELL DISTRIBUTION WIDTH 17.1 % (9.4-14.8)
[2018-10-05 04:16] LABS: ANION GAP 6 mmol/L (5-15); CALCIUM 8.4 mg/dL (8.5-10.1); CHLORIDE 116 mmol/L (98-107)
[2018-10-05 04:19] LABS: CREATININE 1.24 mg/dL (0.7-1.3)
[2018-10-05 04:27] LABS: MD YES
[2018-10-05 04:32] LABS: ANISOCYTOSIS 1+; BAND#(MANUAL) 0.06 x10^3/uL; BANDS%(MANUAL) 1 % (0-7); EOS#(MANUAL) 0.67 x10^3/uL (0.0-0.4); EOS% (MANUAL) 11 % (1-7); LYMPHS% (MANUAL) 23 % (22-44); MONOS#(MANUAL) 0.55 x10^3/uL (0.3-2.7); MONOS% (MANUAL) 9 % (2-9); POLYCHROMASIA 1+; SEG#(MANUAL) 3.42 x10^3/uL (1.8-6.8); SEGS% (MANUAL) 56 % (42-75)
[2018-10-05 04:33] LABS: <PLATELET ESTIMATE> DECREASED; LARGE PLATELETS 1+
[2018-10-05] MEDS: DEXTROSE 5% 1,000 ML IV SCH ×2 (04:39→15:28)
[2018-10-05] MEDS: PROPOFOL 100 ML IV PRN ×3 (04:40→21:58)
[2018-10-05] MEDS: METOCLOPRAMIDE 5 MG/ML, 2ML IVPush SCH ×3 (04:57→21:57)
[2018-10-05] MEDS: ERTAPENEM 1 GM in SODIUM CHLORIDE 0.9% 50 ML IV SCH (07:44)
[2018-10-05] MEDS: SODIUM CHLORIDE FLUSH 10ML SYR IVF SCH ×2 (09:05→21:59)
[2018-10-05] MEDS: ALBUMIN HUMAN 25% 100 ML IV SCH ×2 (09:05→21:57)
[2018-10-05] MEDS: FONDAPARINUX 2.5 MG/0.5 ML SQ SCH (09:05)
[2018-10-05] MEDS: PANTOPRAZOLE 40 MG IV IVPush SCH (09:05)
[2018-10-05] MEDS: FUROSEMIDE 40 MG/4 ML IV SCH ×2 (09:05→23:09)
[2018-10-05] MEDS: THIAMINE 200 MG in SODIUM CHLORIDE 0.9% 50 ML IV SCH (09:19)
[2018-10-06] MEDS: ALBUTEROL/IPRATROPIUM 2.5MG/0.5MG, 3 ML INLINE SCH ×6 (02:00→22:00)
[2018-10-06] MEDS: DEXTROSE 5% 1,000 ML IV SCH ×2 (03:15→14:50)
[2018-10-06] MEDS: PROPOFOL 100 ML IV PRN (03:41)
[2018-10-06] MEDS: METOCLOPRAMIDE 5 MG/ML, 2ML IVPush SCH ×4 (04:17→22:46)
[2018-10-06 04:43] LABS: MEAN CORPUSCULAR HEMOGLOBIN 30.9 pg (27.5-34.5); MEAN CORPUSCULAR HGB CONC 33.2 g/dL (33.2-36.2); MEAN CORPUSCULAR VOLUME 93.2 fL (81-97); MEAN PLATELET VOLUME 8.9 fL (7.4-10.4); PLATELET COUNT 124 x10^3/uL (130-400); RED BLOOD COUNT 2.72 x10^6/uL (4.38-5.82); RED CELL DISTRIBUTION WIDTH 17.3 % (9.4-14.8)
[2018-10-06 05:51] LABS: MD YES
[2018-10-06 05:54] LABS: ANISOCYTOSIS 1+; EOS#(MANUAL) 0.49 x10^3/uL (0.0-0.4); EOS% (MANUAL) 9 % (1-7); LYMPH#(MANUAL) 1.67 x10^3/uL (1-3.4); LYMPHS% (MANUAL) 31 % (22-44); MONOS#(MANUAL) 0.27 x10^3/uL (0.3-2.7); MONOS% (MANUAL) 5 % (2-9); POLYCHROMASIA 1+; SEG#(MANUAL) 2.97 x10^3/uL (1.8-6.8); SEGS% (MANUAL) 55 % (42-75)
[2018-10-06 05:55] LABS: <PLATELET ESTIMATE> DECREASED; LARGE PLATELETS 1+
[2018-10-06] MEDS: SODIUM CHLORIDE FLUSH 10ML SYR IVF SCH ×2 (08:21→19:35)
[2018-10-06] MEDS: ALBUMIN HUMAN 25% 100 ML IV SCH ×2 (08:22→19:33)
[2018-10-06] MEDS: FUROSEMIDE 40 MG/4 ML IV SCH ×2 (08:23→21:11)
[2018-10-06] MEDS: FONDAPARINUX 2.5 MG/0.5 ML SQ SCH (08:23)
[2018-10-06] MEDS: PANTOPRAZOLE 40 MG IV IVPush SCH (08:23)
[2018-10-06] MEDS: THIAMINE 200 MG in SODIUM CHLORIDE 0.9% 50 ML IV SCH (10:02)
[2018-10-06] MEDS: ERTAPENEM 1 GM in SODIUM CHLORIDE 0.9% 50 ML IV SCH (10:02)
[2018-10-07] MEDS: ALBUTEROL/IPRATROPIUM 2.5MG/0.5MG, 3 ML INLINE SCH ×6 (02:07→22:47)
[2018-10-07] MEDS: DEXTROSE 5% 1,000 ML IV SCH (02:29)
[2018-10-07] MEDS: METOCLOPRAMIDE 5 MG/ML, 2ML IVPush SCH ×2 (04:54→10:00)
[2018-10-07 04:59] LABS: MEAN CORPUSCULAR HEMOGLOBIN 30.5 pg (27.5-34.5); MEAN CORPUSCULAR HGB CONC 32.7 g/dL (33.2-36.2); MEAN CORPUSCULAR VOLUME 93.4 fL (81-97); MEAN PLATELET VOLUME 8.3 fL (7.4-10.4); PLATELET COUNT 147 x10^3/uL (130-400); RED BLOOD COUNT 2.79 x10^6/uL (4.38-5.82); RED CELL DISTRIBUTION WIDTH 16.9 % (9.4-14.8)
[2018-10-07 05:16] LABS: FIO2 40 %
[2018-10-07 05:57] LABS: BASOPHILS # (AUTO) 0.01 x10^3/uL (0-0.1); BASOPHILS % (AUTO) 0 % (0-1); EOSINOPHILS # (AUTO) 0.45 x10^3/uL (0-0.4); EOSINOPHILS % (AUTO) 8 % (1-7); LYMPHOCYTES # (AUTO) 0.75 x10^3/uL (1-3.4); LYMPHOCYTES % (AUTO) 13 % (22-44); MD SCAN; MONOCYTES # (AUTO) 0.75 x10^3/uL (0.2-0.8); MONOCYTES % (AUTO) 13 % (2-9); NEUTROPHILS % (AUTO) 67 % (42-75)
[2018-10-07] MEDS: PANTOPRAZOLE 40 MG IV IVPush SCH (09:22)
[2018-10-07] MEDS: ALBUMIN HUMAN 25% 100 ML IV SCH ×2 (09:22→20:52)
[2018-10-07] MEDS: FONDAPARINUX 2.5 MG/0.5 ML SQ SCH (09:22)
[2018-10-07] MEDS: SODIUM CHLORIDE FLUSH 10ML SYR IVF SCH ×2 (09:23→20:53)
[2018-10-07] MEDS: ERTAPENEM 1 GM in SODIUM CHLORIDE 0.9% 50 ML IV SCH (09:23)
[2018-10-07] MEDS ORDERED: DEXTROSE 5% 1,000 ML IV SCH (09:30)
[2018-10-07] MEDS: THIAMINE 200 MG in SODIUM CHLORIDE 0.9% 50 ML IV SCH (09:32)
[2018-10-07] MEDS: FUROSEMIDE 100 MG in SODIUM CHLORIDE 0.9% 90 ML IV SCH (09:32)
--- NOTE | 2018-10-07 10:27 | NUR ---
10/07 TF GOAL: w/ propofol: PROMOTE @ 85ML/HR off propofol: PROMOTE @ 90ML/HR Abdulaziz BID via feeding tube
[2018-10-07 13:38] LABS: CHLORIDE 110 mmol/L (98-107)
[2018-10-07 13:46] LABS: ANION GAP 6 mmol/L (5-15); CALCIUM 8.7 mg/dL (8.5-10.1); CREATININE 1.03 mg/dL (0.7-1.3)
[2018-10-07] MEDS ORDERED: KSCALE TO 4.0 IV ONE (14:00)
[2018-10-07] MEDS ORDERED: POTASSIUM CHLORIDE PMX 100 ML IV ONE ×2 (14:00→14:30)
[2018-10-07] MEDS ORDERED: POTASSIUM CHLORIDE 40 MEQ in SODIUM CHLORIDE 0.9% 500 ML IV ONE (15:00)
[2018-10-07 18:17] LABS: ANION GAP 4 mmol/L (5-15); CALCIUM 7.5 mg/dL (8.5-10.1); CHLORIDE 113 mmol/L (98-107); CREATININE 0.91 mg/dL (0.7-1.3)
[2018-10-07] MEDS: KSCALE TO 4.0 IV SCH (18:30)
[2018-10-07] MEDS ORDERED: KSCALE TO 4.0 IV SCH (18:30)
[2018-10-07] MEDS: THIAMINE 100MG TABLET PO SCH (20:53)
[2018-10-08] MEDS: KSCALE TO 4.0 IV SCH (00:30)
[2018-10-08 01:33] LABS: ANION GAP 6 mmol/L (5-15); CHLORIDE 110 mmol/L (98-107); CREATININE 1.04 mg/dL (0.7-1.3)
[2018-10-08] MEDS: ALBUTEROL/IPRATROPIUM 2.5MG/0.5MG, 3 ML INLINE SCH ×6 (02:12→22:13)
[2018-10-08] MEDS ORDERED: POTASSIUM CHLORIDE 10 MEQ in SODIUM CHLORIDE 0.9% 250 ML IV ONE (02:30)
[2018-10-08] MEDS: FUROSEMIDE 100 MG in SODIUM CHLORIDE 0.9% 90 ML IV SCH (02:32)
[2018-10-08 07:03] LABS: ANION GAP 7 mmol/L (5-15); CALCIUM 8.7 mg/dL (8.5-10.1); CHLORIDE 107 mmol/L (98-107); CREATININE 0.89 mg/dL (0.7-1.3)
[2018-10-08 07:07] LABS: BASOPHILS # (AUTO) 0.01 x10^3/uL (0-0.1); BASOPHILS % (AUTO) 0 % (0-1); EOSINOPHILS # (AUTO) 0.56 x10^3/uL (0-0.4); EOSINOPHILS % (AUTO) 9 % (1-7); LYMPHOCYTES # (AUTO) 0.77 x10^3/uL (1-3.4); LYMPHOCYTES % (AUTO) 13 % (22-44); MD NO; MEAN CORPUSCULAR HEMOGLOBIN 30.2 pg (27.5-34.5); MEAN CORPUSCULAR HGB CONC 32.2 g/dL (33.2-36.2); MEAN CORPUSCULAR VOLUME 93.8 fL (81-97); MONOCYTES # (AUTO) 0.82 x10^3/uL (0.2-0.8); MONOCYTES % (AUTO) 14 % (2-9); NEUTROPHILS # (AUTO) 3.86 x10^3/uL (1.8-6.8); NEUTROPHILS % (AUTO) 64 % (42-75); PLATELET COUNT 174 x10^3/uL (130-400); RED BLOOD COUNT 2.93 x10^6/uL (4.38-5.82); RED CELL DISTRIBUTION WIDTH 18.1 % (9.4-14.8)
[2018-10-08] MEDS: ERTAPENEM 1 GM in SODIUM CHLORIDE 0.9% 50 ML IV SCH (09:32)
[2018-10-08] MEDS: FONDAPARINUX 2.5 MG/0.5 ML SQ SCH (09:32)
[2018-10-08] MEDS: POTASSIUM CHLORIDE 10% 40 MEQ/30 ML UDC PO SCH ×2 (09:32→20:31)
[2018-10-08] MEDS: PANTOPRAZOLE 40 MG IV IVPush SCH (09:32)
[2018-10-08] MEDS: METOLAZONE 5 MG TABLET PO SCH ×2 (09:42→17:50)
[2018-10-08] MEDS: THIAMINE 100MG TABLET PO SCH ×2 (09:44→20:31)
[2018-10-08] MEDS: FUROSEMIDE 40 MG/4 ML IV SCH ×2 (09:44→17:50)
[2018-10-08] MEDS: ALBUMIN HUMAN 25% 100 ML IV SCH ×2 (09:45→20:31)
[2018-10-08] MEDS: SODIUM CHLORIDE FLUSH 10ML SYR IVF SCH ×2 (09:57→20:31)
[2018-10-08 13:48] LABS: ANION GAP 3 mmol/L (5-15); CHLORIDE 108 mmol/L (98-107); CREATININE 0.96 mg/dL (0.7-1.3)
[2018-10-08 19:06] LABS: ANION GAP 5 mmol/L (5-15); CALCIUM 9.5 mg/dL (8.5-10.1); CHLORIDE 105 mmol/L (98-107); CREATININE 0.93 mg/dL (0.7-1.3)
[2018-10-08] MEDS: FENTANYL PF 100 MCG/2ML IVPush PRN (20:31)
[2018-10-09] MEDS: ALBUTEROL/IPRATROPIUM 2.5MG/0.5MG, 3 ML INLINE SCH ×3 (02:14→10:20)
[2018-10-09 04:27] LABS: BASOPHILS # (AUTO) 0.01 x10^3/uL (0-0.1); BASOPHILS % (AUTO) 0 % (0-1); EOSINOPHILS # (AUTO) 0.54 x10^3/uL (0-0.4); EOSINOPHILS % (AUTO) 10 % (1-7); LYMPHOCYTES # (AUTO) 0.94 x10^3/uL (1-3.4); LYMPHOCYTES % (AUTO) 17 % (22-44); MD NO; MEAN CORPUSCULAR HEMOGLOBIN 30.2 pg (27.5-34.5); MEAN CORPUSCULAR HGB CONC 31.7 g/dL (33.2-36.2); MEAN CORPUSCULAR VOLUME 95.5 fL (81-97); MEAN PLATELET VOLUME 7.5 fL (7.4-10.4); MONOCYTES # (AUTO) 0.54 x10^3/uL (0.2-0.8); MONOCYTES % (AUTO) 10 % (2-9); NEUTROPHILS # (AUTO) 3.64 x10^3/uL (1.8-6.8); NEUTROPHILS % (AUTO) 64 % (42-75); PLATELET COUNT 180 x10^3/uL (130-400); RED BLOOD COUNT 2.87 x10^6/uL (4.38-5.82); RED CELL DISTRIBUTION WIDTH 17.4 % (9.4-14.8)
[2018-10-09] MEDS: FUROSEMIDE 40 MG/4 ML IV SCH ×2 (07:42→17:36)
[2018-10-09] MEDS: METOLAZONE 5 MG TABLET PO SCH ×2 (07:42→17:36)
[2018-10-09] MEDS: SODIUM CHLORIDE FLUSH 10ML SYR IVF SCH ×2 (09:42→21:24)
[2018-10-09] MEDS: PANTOPRAZOLE 40 MG IV IVPush SCH (09:43)
[2018-10-09] MEDS: FONDAPARINUX 2.5 MG/0.5 ML SQ SCH (09:43)
[2018-10-09] MEDS: THIAMINE 100MG TABLET PO SCH ×2 (09:43→21:24)
[2018-10-09] MEDS: CARVEDILOL 6.25 MG TABLET PO SCH ×2 (09:43→17:36)
[2018-10-09] MEDS: ERTAPENEM 1 GM in SODIUM CHLORIDE 0.9% 50 ML IV SCH (09:43)
[2018-10-09] MEDS: ALBUMIN HUMAN 25% 100 ML IV SCH ×2 (09:43→21:24)
[2018-10-09] MEDS ORDERED: ALBUTEROL SULFATE 2.5 MG/3 ML NPPB PRN (14:00)
[2018-10-10 04:42] LABS: BASOPHILS # (AUTO) 0.03 x10^3/uL (0-0.1); BASOPHILS % (AUTO) 1 % (0-1); EOSINOPHILS # (AUTO) 0.62 x10^3/uL (0-0.4); EOSINOPHILS % (AUTO) 11 % (1-7); LYMPHOCYTES # (AUTO) 0.94 x10^3/uL (1-3.4); LYMPHOCYTES % (AUTO) 17 % (22-44); MD NO; MEAN CORPUSCULAR HEMOGLOBIN 31.9 pg (27.5-34.5); MEAN CORPUSCULAR HGB CONC 34.1 g/dL (33.2-36.2); MEAN CORPUSCULAR VOLUME 93.7 fL (81-97); MEAN PLATELET VOLUME 7.3 fL (7.4-10.4); MONOCYTES # (AUTO) 0.56 x10^3/uL (0.2-0.8); MONOCYTES % (AUTO) 10 % (2-9); NEUTROPHILS # (AUTO) 3.32 x10^3/uL (1.8-6.8); NEUTROPHILS % (AUTO) 61 % (42-75); PLATELET COUNT 231 x10^3/uL (130-400); RED BLOOD COUNT 3.11 x10^6/uL (4.38-5.82); RED CELL DISTRIBUTION WIDTH 17.2 % (9.4-14.8)
[2018-10-10 04:46] LABS: ANION GAP 5 mmol/L (5-15); CALCIUM 10.1 mg/dL (8.5-10.1); CHLORIDE 101 mmol/L (98-107)
[2018-10-10 04:55] LABS: CREATININE 0.96 mg/dL (0.7-1.3); TRIGLYCERIDES 59 mg/dL (50-200)
[2018-10-10] MEDS: CARVEDILOL 6.25 MG TABLET PO SCH ×2 (06:15→17:06)
[2018-10-10] MEDS: POTASSIUM CHLORIDE 20 MEQ TAB.ER.PRT PO SCH ×2 (08:53→17:06)
[2018-10-10] MEDS: PANTOPRAZOLE 40 MG IV IVPush SCH (08:53)
[2018-10-10] MEDS: SODIUM CHLORIDE FLUSH 10ML SYR IVF SCH ×2 (08:53→20:28)
[2018-10-10] MEDS: METOLAZONE 5 MG TABLET PO SCH ×2 (08:53→17:06)
[2018-10-10] MEDS: AcetaZOLAMIDE INJ 500 MG IVPush SCH ×2 (08:53→20:28)
[2018-10-10] MEDS: CEFTRIAXONE PMX 2GM/50ML 50 ML IV SCH (08:53)
[2018-10-10] MEDS: FONDAPARINUX 2.5 MG/0.5 ML SQ SCH (08:54)
[2018-10-10] MEDS ORDERED: SCOPOLAMINE PATCH, 1.5MG PATCH.TD72 TD SCH (09:00)
[2018-10-10] MEDS: ZIPRASIDONE 20 MG INJ IM PRN (15:20)
[2018-10-11 04:35] LABS: MEAN CORPUSCULAR HEMOGLOBIN 30.3 pg (27.5-34.5); MEAN CORPUSCULAR HGB CONC 32.4 g/dL (33.2-36.2); MEAN CORPUSCULAR VOLUME 93.7 fL (81-97); MEAN PLATELET VOLUME 7.5 fL (7.4-10.4); PLATELET COUNT 255 x10^3/uL (130-400); RED BLOOD COUNT 3.25 x10^6/uL (4.38-5.82); RED CELL DISTRIBUTION WIDTH 17.8 % (9.4-14.8)
[2018-10-11 04:42] LABS: ANION GAP 6 mmol/L (5-15); CALCIUM 9.8 mg/dL (8.5-10.1); CHLORIDE 104 mmol/L (98-107); CREATININE 0.94 mg/dL (0.7-1.3)
[2018-10-11 05:01] LABS: BASOPHILS # (AUTO) 0.02 x10^3/uL (0-0.1); BASOPHILS % (AUTO) 0 % (0-1); EOSINOPHILS # (AUTO) 0.66 x10^3/uL (0-0.4); EOSINOPHILS % (AUTO) 11 % (1-7); LYMPHOCYTES # (AUTO) 1.15 x10^3/uL (1-3.4); LYMPHOCYTES % (AUTO) 20 % (22-44); MD SCAN; MONOCYTES # (AUTO) 0.51 x10^3/uL (0.2-0.8); MONOCYTES % (AUTO) 9 % (2-9); NEUTROPHILS # (AUTO) 3.49 x10^3/uL (1.8-6.8); NEUTROPHILS % (AUTO) 60 % (42-75)
[2018-10-11] MEDS: CARVEDILOL 6.25 MG TABLET PO SCH ×2 (06:00→18:06)
[2018-10-11] MEDS: METOLAZONE 5 MG TABLET PO SCH ×2 (08:00→18:06)
[2018-10-11] MEDS: AcetaZOLAMIDE INJ 500 MG IVPush SCH (08:00)
[2018-10-11] MEDS: SODIUM CHLORIDE FLUSH 10ML SYR IVF SCH ×2 (08:01→20:43)
[2018-10-11] MEDS: PANTOPRAZOLE 40 MG IV IVPush SCH (08:01)
[2018-10-11] MEDS: FONDAPARINUX 2.5 MG/0.5 ML SQ SCH (08:01)
[2018-10-11] MEDS: CEFTRIAXONE PMX 2GM/50ML 50 ML IV SCH (08:17)
--- NOTE | 2018-10-11 14:31 | NUR ---
ELECTRICIAN YARD Recommend; NPO status with ongoing use of short term means of nurtition and hydration -Vigilant oral care Addendum: 10/11/18 at 1431 by SOM STEWART Amended: Links added.
[2018-10-12] MEDS: ZIPRASIDONE 20 MG INJ IM PRN (01:53)
[2018-10-12 03:00] LABS: BASOPHILS # (AUTO) 0.03 x10^3/uL (0-0.1); BASOPHILS % (AUTO) 1 % (0-1); EOSINOPHILS # (AUTO) 0.64 x10^3/uL (0-0.4); EOSINOPHILS % (AUTO) 12 % (1-7); LYMPHOCYTES # (AUTO) 1.26 x10^3/uL (1-3.4); LYMPHOCYTES % (AUTO) 23 % (22-44); MD NO; MEAN CORPUSCULAR HEMOGLOBIN 31.3 pg (27.5-34.5); MEAN CORPUSCULAR HGB CONC 33.3 g/dL (33.2-36.2); MEAN CORPUSCULAR VOLUME 94.1 fL (81-97); MEAN PLATELET VOLUME 7.4 fL (7.4-10.4); MONOCYTES # (AUTO) 0.77 x10^3/uL (0.2-0.8); MONOCYTES % (AUTO) 14 % (2-9); NEUTROPHILS # (AUTO) 2.76 x10^3/uL (1.8-6.8); NEUTROPHILS % (AUTO) 51 % (42-75); PLATELET COUNT 255 x10^3/uL (130-400); RED BLOOD COUNT 3.08 x10^6/uL (4.38-5.82); RED CELL DISTRIBUTION WIDTH 17.6 % (9.4-14.8)
[2018-10-12 03:04] LABS: ANION GAP 7 mmol/L (5-15); CALCIUM 9.7 mg/dL (8.5-10.1); CHLORIDE 110 mmol/L (98-107); CREATININE 1.08 mg/dL (0.7-1.3)
[2018-10-12] MEDS: CARVEDILOL 6.25 MG TABLET PO SCH ×2 (09:18→17:32)
[2018-10-12] MEDS: METOLAZONE 5 MG TABLET PO SCH ×2 (09:18→17:32)
[2018-10-12] MEDS: FUROSEMIDE 20 MG TABLET PO SCH (09:18)
[2018-10-12] MEDS: FONDAPARINUX 2.5 MG/0.5 ML SQ SCH (09:18)
[2018-10-12] MEDS: CEFTRIAXONE PMX 2GM/50ML 50 ML IV SCH (09:19)
[2018-10-12] MEDS: SODIUM CHLORIDE FLUSH 10ML SYR IVF SCH ×2 (09:19→20:36)
[2018-10-12 15:36] LABS: FREE T4 (FREE THYROXINE) 1.23 ng/dL (0.76-1.46); THYROID STIMULATING HORMONE 3.09 mIU/L (0.358-3.740)
[2018-10-12] MEDS: CEFAZOLIN 2,000 MG in SODIUM CHLORIDE 0.9% 50 ML IV SCH ×2 (15:38→22:06)
[2018-10-12] MEDS: FENTANYL PF 100 MCG/2ML IVPush PRN (17:27)
[2018-10-12] MEDS ORDERED: LACTULOSE 10 GM/15 ML UDC ONE (17:28)
[2018-10-12] MEDS ORDERED: LACTULOSE 20 GM/30 ML UDC NG SCH (21:00)
[2018-10-13 04:17] LABS: BASOPHILS # (AUTO) 0.02 x10^3/uL (0-0.1); BASOPHILS % (AUTO) 0 % (0-1); EOSINOPHILS % (AUTO) 12 % (1-7); LYMPHOCYTES # (AUTO) 1.37 x10^3/uL (1-3.4); LYMPHOCYTES % (AUTO) 26 % (22-44); MD NO; MEAN CORPUSCULAR HEMOGLOBIN 31.2 pg (27.5-34.5); MEAN CORPUSCULAR HGB CONC 33.1 g/dL (33.2-36.2); MEAN CORPUSCULAR VOLUME 94.2 fL (81-97); MEAN PLATELET VOLUME 7.4 fL (7.4-10.4); MONOCYTES # (AUTO) 0.64 x10^3/uL (0.2-0.8); MONOCYTES % (AUTO) 12 % (2-9); NEUTROPHILS # (AUTO) 2.63 x10^3/uL (1.8-6.8); NEUTROPHILS % (AUTO) 50 % (42-75); PLATELET COUNT 277 x10^3/uL (130-400); RED CELL DISTRIBUTION WIDTH 17.8 % (9.4-14.8)
[2018-10-13 04:22] LABS: ALANINE AMINOTRANSFERASE 121 U/L (12-78); ALBUMIN 4.2 g/dL (3.4-5.0); ANION GAP 6 mmol/L (5-15); CALCIUM 9.6 mg/dL (8.5-10.1); CHLORIDE 110 mmol/L (98-107); CREATININE 1.08 mg/dL (0.7-1.3); TRIGLYCERIDES 30 mg/dL (50-200)
[2018-10-13 04:24] LABS: ALKALINE PHOSPHATASE 83 U/L (45-117); BILIRUBIN,TOTAL 0.9 mg/dL (0.2-1.0); TOTAL PROTEIN 8.6 g/dL (6.4-8.2)
[2018-10-13] MEDS: LACTULOSE 20 GM/30 ML UDC NG SCH ×4 (04:44→21:45)
[2018-10-13] MEDS: CEFAZOLIN 2,000 MG in SODIUM CHLORIDE 0.9% 50 ML IV SCH ×3 (05:31→21:44)
[2018-10-13] MEDS: CARVEDILOL 6.25 MG TABLET PO SCH ×2 (05:31→18:33)
[2018-10-13] MEDS: METOLAZONE 5 MG TABLET PO SCH ×2 (07:49→18:33)
[2018-10-13] MEDS: FUROSEMIDE 20 MG TABLET PO SCH (09:51)
[2018-10-13] MEDS: FONDAPARINUX 2.5 MG/0.5 ML SQ SCH (09:51)
[2018-10-13] MEDS: SODIUM CHLORIDE FLUSH 10ML SYR IVF SCH ×2 (21:00→21:16)
[2018-10-14 04:40] LABS: BASOPHILS # (AUTO) 0.02 x10^3/uL (0-0.1); BASOPHILS % (AUTO) 0 % (0-1); EOSINOPHILS # (AUTO) 0.56 x10^3/uL (0-0.4); EOSINOPHILS % (AUTO) 11 % (1-7); LYMPHOCYTES # (AUTO) 1.27 x10^3/uL (1-3.4); LYMPHOCYTES % (AUTO) 24 % (22-44); MD NO; MEAN CORPUSCULAR HEMOGLOBIN 31.3 pg (27.5-34.5); MEAN CORPUSCULAR HGB CONC 33.2 g/dL (33.2-36.2); MEAN PLATELET VOLUME 7.2 fL (7.4-10.4); MONOCYTES # (AUTO) 0.71 x10^3/uL (0.2-0.8); MONOCYTES % (AUTO) 14 % (2-9); NEUTROPHILS # (AUTO) 2.66 x10^3/uL (1.8-6.8); NEUTROPHILS % (AUTO) 51 % (42-75); PLATELET COUNT 263 x10^3/uL (130-400); RED BLOOD COUNT 3.42 x10^6/uL (4.38-5.82); RED CELL DISTRIBUTION WIDTH 18.4 % (9.4-14.8)
[2018-10-14 04:41] LABS: HCT (SEDRATE) 32.8 % (39.2-51.8)
[2018-10-14 04:53] LABS: ALANINE AMINOTRANSFERASE 173 U/L (12-78); ALBUMIN 4.2 g/dL (3.4-5.0); ANION GAP 6 mmol/L (5-15); CALCIUM 10.4 mg/dL (8.5-10.1); CHLORIDE 110 mmol/L (98-107); CREATININE 1.14 mg/dL (0.7-1.3)
[2018-10-14 05:00] LABS: ALKALINE PHOSPHATASE 94 U/L (45-117); BILIRUBIN,TOTAL 0.9 mg/dL (0.2-1.0); TOTAL PROTEIN 8.9 g/dL (6.4-8.2)
[2018-10-14] MEDS: CARVEDILOL 6.25 MG TABLET PO SCH ×2 (05:41→16:50)
[2018-10-14] MEDS: CEFAZOLIN 2,000 MG in SODIUM CHLORIDE 0.9% 50 ML IV SCH ×3 (05:41→22:13)
[2018-10-14] MEDS: METOLAZONE 5 MG TABLET PO SCH ×2 (07:40→16:50)
[2018-10-14] MEDS: FONDAPARINUX 2.5 MG/0.5 ML SQ SCH (07:41)
[2018-10-14] MEDS ORDERED: LACTULOSE 20 GM/30 ML UDC ONE (08:40)
[2018-10-14] MEDS ORDERED: LACTULOSE 10 GM/15 ML UDC ONE (08:41)
[2018-10-14] MEDS ORDERED: RIFAXIMIN 550 MG TABLET ONE (08:45)
[2018-10-14] MEDS: LACTULOSE 20 GM/30 ML UDC NG SCH ×3 (08:46→22:09)
[2018-10-14] MEDS: SODIUM CHLORIDE FLUSH 10ML SYR IVF SCH ×2 (08:46→20:55)
[2018-10-14] MEDS: FUROSEMIDE 20 MG TABLET PO SCH (08:46)
[2018-10-14] MEDS: RIFAXIMIN 550 MG TABLET PO SCH ×2 (08:46→22:10)
[2018-10-14] MEDS ORDERED: QUETIAPINE 25MG TABLET ONE (13:00)
[2018-10-14] MEDS: QUETIAPINE 25MG TABLET PO SCH ×2 (13:14→22:10)
--- NOTE | 2018-10-14 15:03 | NUR ---
AUDIT MGR Recommend; NPO status with ongoing use of short term means of nurtition and hydration -Vigilant oral care Addendum: 10/14/18 at 1503 by SOM STEWART Amended: Links added.
[2018-10-14] MEDS: FENTANYL PF 100 MCG/2ML IVPush PRN (20:55)
[2018-10-15 04:52] LABS: ANION GAP 4 mmol/L (5-15); CALCIUM 10.3 mg/dL (8.5-10.1); CHLORIDE 113 mmol/L (98-107); CREATININE 1.05 mg/dL (0.7-1.3)
[2018-10-15 05:31] LABS: BASOPHILS # (AUTO) 0.04 x10^3/uL (0-0.1); BASOPHILS % (AUTO) 1 % (0-1); EOSINOPHILS # (AUTO) 0.56 x10^3/uL (0-0.4); EOSINOPHILS % (AUTO) 11 % (1-7); LYMPHOCYTES # (AUTO) 1.26 x10^3/uL (1-3.4); LYMPHOCYTES % (AUTO) 25 % (22-44); MD NO; MEAN CORPUSCULAR HEMOGLOBIN 31.7 pg (27.5-34.5); MEAN CORPUSCULAR HGB CONC 33.3 g/dL (33.2-36.2); MEAN CORPUSCULAR VOLUME 95.2 fL (81-97); MONOCYTES # (AUTO) 0.99 x10^3/uL (0.2-0.8); MONOCYTES % (AUTO) 20 % (2-9); NEUTROPHILS # (AUTO) 2.16 x10^3/uL (1.8-6.8); NEUTROPHILS % (AUTO) 43 % (42-75); PLATELET COUNT 254 x10^3/uL (130-400); RED BLOOD COUNT 3.57 x10^6/uL (4.38-5.82); RED CELL DISTRIBUTION WIDTH 19.3 % (9.4-14.8)
[2018-10-15] MEDS: CEFAZOLIN 2,000 MG in SODIUM CHLORIDE 0.9% 50 ML IV SCH ×3 (05:46→22:56)
[2018-10-15] MEDS: CARVEDILOL 6.25 MG TABLET PO SCH ×2 (05:50→18:12)
[2018-10-15] MEDS: SODIUM CHLORIDE FLUSH 10ML SYR IVF SCH ×2 (09:00→20:46)
[2018-10-15] MEDS: QUETIAPINE 25MG TABLET PO SCH ×2 (09:05→20:28)
[2018-10-15] MEDS: METOLAZONE 5 MG TABLET PO SCH ×2 (09:08→18:01)
[2018-10-15] MEDS: FUROSEMIDE 20 MG TABLET PO SCH (09:08)
[2018-10-15] MEDS: RIFAXIMIN 550 MG TABLET PO SCH ×2 (09:09→20:28)
[2018-10-15] MEDS: FONDAPARINUX 2.5 MG/0.5 ML SQ SCH (09:13)
[2018-10-15] MEDS: LACTULOSE 20 GM/30 ML UDC NG SCH ×3 (09:13→20:28)
--- NOTE | 2018-10-15 10:52 | NUR ---
TF GOAL: PROMOTE @ 90ML/HR
[2018-10-15] MEDS: FENTANYL PF 100 MCG/2ML IVPush PRN (20:28)
[2018-10-15] MEDS ORDERED: HALOPERIDOL 5 MG/ML IV ONE (20:30)
[2018-10-16 04:43] LABS: BASOPHILS # (AUTO) 0.04 x10^3/uL (0-0.1); BASOPHILS % (AUTO) 1 % (0-1); EOSINOPHILS # (AUTO) 0.47 x10^3/uL (0-0.4); EOSINOPHILS % (AUTO) 9 % (1-7); LYMPHOCYTES # (AUTO) 1.64 x10^3/uL (1-3.4); LYMPHOCYTES % (AUTO) 31 % (22-44); MD NO; MEAN CORPUSCULAR HEMOGLOBIN 30.8 pg (27.5-34.5); MEAN CORPUSCULAR HGB CONC 32.3 g/dL (33.2-36.2); MEAN CORPUSCULAR VOLUME 95.4 fL (81-97); MEAN PLATELET VOLUME 7.1 fL (7.4-10.4); MONOCYTES # (AUTO) 0.99 x10^3/uL (0.2-0.8); MONOCYTES % (AUTO) 19 % (2-9); NEUTROPHILS % (AUTO) 40 % (42-75); PLATELET COUNT 267 x10^3/uL (130-400); RED BLOOD COUNT 3.82 x10^6/uL (4.38-5.82)
[2018-10-16 04:56] LABS: ANION GAP 4 mmol/L (5-15); CALCIUM 10.4 mg/dL (8.5-10.1); CHLORIDE 113 mmol/L (98-107); CREATININE 1.17 mg/dL (0.7-1.3); TRIGLYCERIDES 46 mg/dL (50-200)
[2018-10-16] MEDS: CEFAZOLIN 2,000 MG in SODIUM CHLORIDE 0.9% 50 ML IV SCH ×3 (05:26→23:06)
[2018-10-16] MEDS: CARVEDILOL 6.25 MG TABLET PO SCH ×2 (05:26→17:26)
[2018-10-16] MEDS: LACTULOSE 20 GM/30 ML UDC NG SCH ×2 (09:28→19:48)
[2018-10-16] MEDS: LACTOBACILLUS CHEW TABLET PO SCH ×3 (09:29→19:48)
[2018-10-16] MEDS: FUROSEMIDE 20 MG TABLET PO SCH (09:29)
[2018-10-16] MEDS: RIFAXIMIN 550 MG TABLET PO SCH ×2 (09:29→19:48)
[2018-10-16] MEDS: SODIUM CHLORIDE FLUSH 10ML SYR IVF SCH ×2 (09:30→19:48)
[2018-10-16] MEDS: FONDAPARINUX 2.5 MG/0.5 ML SQ SCH (10:54)
[2018-10-16 12:03] VITALS: BP 137/87
[2018-10-16 13:37] VITALS: BP 118/80
--- NOTE | 2018-10-16 13:52 | NUR ---
REPAIR SPECIALIST recommend MIRYAM/ NTL -1:1 assist -NO STRAWS -Up for all meals -Meds crushed Addendum: 10/16/18 at [address] Amended: Links added.
[2018-10-16 20:13] VITALS: BP 153/87
[2018-10-17 01:54] VITALS: BP 149/77
[2018-10-17 05:04] LABS: MEAN CORPUSCULAR HEMOGLOBIN 30.5 pg (27.5-34.5); MEAN CORPUSCULAR HGB CONC 32.2 g/dL (33.2-36.2); MEAN CORPUSCULAR VOLUME 94.6 fL (81-97); MEAN PLATELET VOLUME 7.5 fL (7.4-10.4); PLATELET COUNT 228 x10^3/uL (130-400); RED BLOOD COUNT 3.72 x10^6/uL (4.38-5.82); RED CELL DISTRIBUTION WIDTH 18.3 % (9.4-14.8)
[2018-10-17 05:10] LABS: ANION GAP 6 mmol/L (5-15); CHLORIDE 116 mmol/L (98-107); CREATININE 1.22 mg/dL (0.7-1.3)
[2018-10-17] MEDS: CARVEDILOL 6.25 MG TABLET PO SCH ×2 (05:12→18:18)
[2018-10-17 05:57] LABS: BASOPHILS # (AUTO) 0.04 x10^3/uL (0-0.1); BASOPHILS % (AUTO) 1 % (0-1); EOSINOPHILS # (AUTO) 0.41 x10^3/uL (0-0.4); EOSINOPHILS % (AUTO) 8 % (1-7); LYMPHOCYTES # (AUTO) 1.54 x10^3/uL (1-3.4); LYMPHOCYTES % (AUTO) 32 % (22-44); MD SCAN; MONOCYTES # (AUTO) 0.87 x10^3/uL (0.2-0.8); MONOCYTES % (AUTO) 18 % (2-9); NEUTROPHILS # (AUTO) 1.99 x10^3/uL (1.8-6.8); NEUTROPHILS % (AUTO) 41 % (42-75)
[2018-10-17] MEDS: RIFAXIMIN 550 MG TABLET PO SCH ×2 (08:13→21:03)
[2018-10-17] MEDS: LACTULOSE 20 GM/30 ML UDC NG SCH ×2 (08:13→21:03)
[2018-10-17] MEDS: FUROSEMIDE 20 MG TABLET PO SCH (08:13)
[2018-10-17] MEDS: CEFAZOLIN 2,000 MG in SODIUM CHLORIDE 0.9% 50 ML IV SCH ×3 (08:13→23:05)
[2018-10-17] MEDS: SODIUM CHLORIDE FLUSH 10ML SYR IVF SCH ×2 (08:14→21:02)
[2018-10-17] MEDS: LACTOBACILLUS CHEW TABLET PO SCH ×3 (08:14→21:03)
[2018-10-17 08:30] VITALS: BP 143/81
[2018-10-17] MEDS: FONDAPARINUX 2.5 MG/0.5 ML SQ SCH (09:00)
[2018-10-17 13:10] VITALS: BP 120/72
[2018-10-17 20:39] VITALS: BP 164/98
[2018-10-18 01:28] VITALS: BP 131/80
[2018-10-18 05:07] LABS: BASOPHILS # (AUTO) 0.04 x10^3/uL (0-0.1); BASOPHILS % (AUTO) 1 % (0-1); EOSINOPHILS # (AUTO) 0.32 x10^3/uL (0-0.4); EOSINOPHILS % (AUTO) 6 % (1-7); LYMPHOCYTES # (AUTO) 1.79 x10^3/uL (1-3.4); LYMPHOCYTES % (AUTO) 34 % (22-44); MD NO; MEAN CORPUSCULAR HGB CONC 32.8 g/dL (33.2-36.2); MEAN CORPUSCULAR VOLUME 94.5 fL (81-97); MEAN PLATELET VOLUME 7.3 fL (7.4-10.4); MONOCYTES # (AUTO) 0.79 x10^3/uL (0.2-0.8); MONOCYTES % (AUTO) 15 % (2-9); NEUTROPHILS # (AUTO) 2.29 x10^3/uL (1.8-6.8); NEUTROPHILS % (AUTO) 44 % (42-75); PLATELET COUNT 239 x10^3/uL (130-400); RED BLOOD COUNT 3.86 x10^6/uL (4.38-5.82); RED CELL DISTRIBUTION WIDTH 19.2 % (9.4-14.8)
[2018-10-18 05:19] LABS: CHLORIDE 118 mmol/L (98-107)
[2018-10-18 05:23] LABS: ANION GAP 6 mmol/L (5-15); CALCIUM 10.3 mg/dL (8.5-10.1); CREATININE 1.04 mg/dL (0.7-1.3)
[2018-10-18] MEDS: CARVEDILOL 6.25 MG TABLET PO SCH ×2 (05:37→17:45)
[2018-10-18] MEDS ORDERED: POTASSIUM CHLORIDE 20 MEQ TAB.ER.PRT PO ONE (07:30)
[2018-10-18] MEDS: CEFAZOLIN 2,000 MG in SODIUM CHLORIDE 0.9% 50 ML IV SCH ×3 (07:39→22:56)
[2018-10-18] MEDS: DEXTROSE 5% 1,000 ML IV SCH ×2 (08:03→21:43)
[2018-10-18] MEDS: SODIUM CHLORIDE FLUSH 10ML SYR IVF SCH ×2 (08:04→21:43)
[2018-10-18] MEDS: LACTULOSE 20 GM/30 ML UDC NG SCH (08:11)
[2018-10-18 08:30] VITALS: BP 119/76
[2018-10-18 08:58] LABS: ANION GAP 5 mmol/L (5-15); CALCIUM 10.1 mg/dL (8.5-10.1); CHLORIDE 118 mmol/L (98-107); CREATININE 1.09 mg/dL (0.7-1.3)
[2018-10-18] MEDS: FONDAPARINUX 2.5 MG/0.5 ML SQ SCH (11:48)
[2018-10-18] MEDS: FUROSEMIDE 20 MG TABLET PO SCH (11:48)
[2018-10-18] MEDS: RIFAXIMIN 550 MG TABLET PO SCH ×2 (11:48→21:43)
[2018-10-18] MEDS: LACTOBACILLUS CHEW TABLET PO SCH ×3 (11:49→21:43)
[2018-10-18] MEDS: ACETAMINOPHEN 325 MG TABLET PO PRN (12:44)
[2018-10-18 13:30] VITALS: BP 133/82
[2018-10-18 14:57] LABS: ANION GAP 3 mmol/L (5-15); CALCIUM 9.8 mg/dL (8.5-10.1); CHLORIDE 118 mmol/L (98-107); CREATININE 1.02 mg/dL (0.7-1.3)
[2018-10-18 19:00] VITALS: BP 117/77
[2018-10-18] MEDS: LACTULOSE 20 GM/30 ML UDC PO SCH (21:43)
[2018-10-18 23:33] LABS: ANION GAP 3 mmol/L (5-15); CALCIUM 9.9 mg/dL (8.5-10.1); CHLORIDE 116 mmol/L (98-107); CREATININE 1.15 mg/dL (0.7-1.3)
[2018-10-19 00:53] VITALS: BP 108/75
[2018-10-19 05:02] LABS: BASOPHILS # (AUTO) 0.02 x10^3/uL (0-0.1); BASOPHILS % (AUTO) 0 % (0-1); EOSINOPHILS # (AUTO) 0.32 x10^3/uL (0-0.4); EOSINOPHILS % (AUTO) 6 % (1-7); LYMPHOCYTES # (AUTO) 2.03 x10^3/uL (1-3.4); LYMPHOCYTES % (AUTO) 38 % (22-44); MD NO; MEAN CORPUSCULAR HEMOGLOBIN 31.1 pg (27.5-34.5); MEAN CORPUSCULAR HGB CONC 32.8 g/dL (33.2-36.2); MEAN CORPUSCULAR VOLUME 94.9 fL (81-97); MEAN PLATELET VOLUME 7.6 fL (7.4-10.4); MONOCYTES # (AUTO) 0.84 x10^3/uL (0.2-0.8); MONOCYTES % (AUTO) 16 % (2-9); NEUTROPHILS # (AUTO) 2.07 x10^3/uL (1.8-6.8); NEUTROPHILS % (AUTO) 39 % (42-75); PLATELET COUNT 219 x10^3/uL (130-400); RED CELL DISTRIBUTION WIDTH 18.7 % (9.4-14.8)
[2018-10-19 05:18] LABS: CHLORIDE 115 mmol/L (98-107)
[2018-10-19 05:36] LABS: ANION GAP 6 mmol/L (5-15); CALCIUM 9.8 mg/dL (8.5-10.1); CREATININE 1.01 mg/dL (0.7-1.3); TRIGLYCERIDES 36 mg/dL (50-200)
[2018-10-19 05:46] VITALS: BP 121/75
[2018-10-19] MEDS: CARVEDILOL 6.25 MG TABLET PO SCH ×2 (05:51→18:32)
[2018-10-19 06:10] LABS: CHLORIDE 115 mmol/L (98-107)
[2018-10-19 06:17] LABS: ANION GAP 7 mmol/L (5-15); CALCIUM 9.6 mg/dL (8.5-10.1); CREATININE 1.04 mg/dL (0.7-1.3)
[2018-10-19 07:10] VITALS: BP 131/76
[2018-10-19] MEDS: CEFAZOLIN 2,000 MG in SODIUM CHLORIDE 0.9% 50 ML IV SCH ×3 (08:56→23:08)
[2018-10-19] MEDS: SODIUM CHLORIDE FLUSH 10ML SYR IVF SCH ×2 (09:00→20:21)
[2018-10-19] MEDS: FONDAPARINUX 2.5 MG/0.5 ML SQ SCH (09:00)
[2018-10-19] MEDS: FUROSEMIDE 20 MG TABLET PO SCH (09:00)
[2018-10-19] MEDS: LACTULOSE 20 GM/30 ML UDC PO SCH ×3 (09:01→20:21)
[2018-10-19] MEDS: RIFAXIMIN 550 MG TABLET PO SCH ×2 (09:01→20:21)
[2018-10-19] MEDS: LACTOBACILLUS CHEW TABLET PO SCH ×3 (09:01→20:21)
[2018-10-19 13:05] VITALS: BP 121/61
[2018-10-19 19:54] VITALS: BP 123/81
[2018-10-20 00:02] VITALS: BP 134/77
[2018-10-20 05:49] LABS: BASOPHILS # (AUTO) 0.03 x10^3/uL (0-0.1); BASOPHILS % (AUTO) 1 % (0-1); EOSINOPHILS # (AUTO) 0.37 x10^3/uL (0-0.4); EOSINOPHILS % (AUTO) 8 % (1-7); LYMPHOCYTES # (AUTO) 1.87 x10^3/uL (1-3.4); LYMPHOCYTES % (AUTO) 40 % (22-44); MD NO; MEAN CORPUSCULAR HEMOGLOBIN 30.7 pg (27.5-34.5); MEAN CORPUSCULAR HGB CONC 32.5 g/dL (33.2-36.2); MEAN CORPUSCULAR VOLUME 94.5 fL (81-97); MEAN PLATELET VOLUME 7.9 fL (7.4-10.4); MONOCYTES # (AUTO) 0.69 x10^3/uL (0.2-0.8); MONOCYTES % (AUTO) 15 % (2-9); NEUTROPHILS # (AUTO) 1.73 x10^3/uL (1.8-6.8); NEUTROPHILS % (AUTO) 37 % (42-75); PLATELET COUNT 225 x10^3/uL (130-400); RED BLOOD COUNT 3.93 x10^6/uL (4.38-5.82); RED CELL DISTRIBUTION WIDTH 18.6 % (9.4-14.8)
[2018-10-20 06:05] LABS: ALBUMIN 3.6 g/dL (3.4-5.0); ANION GAP 5 mmol/L (5-15); CALCIUM 9.3 mg/dL (8.5-10.1); CHLORIDE 114 mmol/L (98-107)
[2018-10-20 06:06] LABS: CREATININE 0.88 mg/dL (0.7-1.3)
[2018-10-20] MEDS: CARVEDILOL 6.25 MG TABLET PO SCH ×2 (06:13→17:48)
[2018-10-20 06:59] VITALS: BP 114/70
[2018-10-20] MEDS: RIFAXIMIN 550 MG TABLET PO SCH ×2 (08:00→20:08)
[2018-10-20] MEDS: LACTOBACILLUS CHEW TABLET PO SCH ×3 (08:00→20:08)
[2018-10-20] MEDS: CEFAZOLIN 2,000 MG in SODIUM CHLORIDE 0.9% 50 ML IV SCH ×2 (08:01→16:17)
[2018-10-20] MEDS: SODIUM CHLORIDE FLUSH 10ML SYR IVF SCH ×2 (08:01→20:08)
[2018-10-20] MEDS: FUROSEMIDE 20 MG TABLET PO SCH (08:01)
[2018-10-20] MEDS: FONDAPARINUX 2.5 MG/0.5 ML SQ SCH (08:02)
[2018-10-20] MEDS: LACTULOSE 20 GM/30 ML UDC PO SCH ×3 (08:03→20:07)
[2018-10-20] MEDS: DEXTROSE 5% 1,000 ML IV SCH ×2 (10:13→20:08)
[2018-10-20 13:45] VITALS: BP 118/81
[2018-10-20 19:52] VITALS: BP 111/74
[2018-10-21] MEDS: CEFAZOLIN 2,000 MG in SODIUM CHLORIDE 0.9% 50 ML IV SCH ×3 (00:03→17:25)
[2018-10-21 00:07] VITALS: BP 121/64
[2018-10-21 05:29] LABS: MEAN CORPUSCULAR HEMOGLOBIN 30.4 pg (27.5-34.5); MEAN CORPUSCULAR HGB CONC 32.1 g/dL (33.2-36.2); MEAN CORPUSCULAR VOLUME 94.5 fL (81-97); MEAN PLATELET VOLUME 8.1 fL (7.4-10.4); PLATELET COUNT 216 x10^3/uL (130-400); RED CELL DISTRIBUTION WIDTH 18.3 % (9.4-14.8)
[2018-10-21 05:33] LABS: CALCIUM 9.2 mg/dL (8.5-10.1); CHLORIDE 109 mmol/L (98-107)
[2018-10-21 05:34] LABS: HCT (SEDRATE) 35.9 % (39.2-51.8)
[2018-10-21 05:38] LABS: ALANINE AMINOTRANSFERASE 48 U/L (12-78); ALBUMIN 3.4 g/dL (3.4-5.0); ALKALINE PHOSPHATASE 93 U/L (45-117); ANION GAP 5 mmol/L (5-15); BILIRUBIN,TOTAL 1.6 mg/dL (0.2-1.0); C-REACTIVE PROTEIN, QUANT 0.46 mg/dL (0.02-0.49); TOTAL PROTEIN 8.3 g/dL (6.4-8.2)
[2018-10-21] MEDS: DEXTROSE 5% 1,000 ML IV SCH ×2 (05:55→17:25)
[2018-10-21] MEDS: CARVEDILOL 6.25 MG TABLET PO SCH ×3 (05:55→17:59)
[2018-10-21 06:27] LABS: BASOPHILS # (AUTO) 0.02 x10^3/uL (0-0.1); BASOPHILS % (AUTO) 0 % (0-1); EOSINOPHILS % (AUTO) 7 % (1-7); LYMPHOCYTES # (AUTO) 1.92 x10^3/uL (1-3.4); LYMPHOCYTES % (AUTO) 47 % (22-44); MD SCAN; MONOCYTES % (AUTO) 15 % (2-9); NEUTROPHILS # (AUTO) 1.27 x10^3/uL (1.8-6.8); NEUTROPHILS % (AUTO) 31 % (42-75)
[2018-10-21 07:11] VITALS: BP 113/67
[2018-10-21] MEDS: LACTOBACILLUS CHEW TABLET PO SCH ×4 (08:25→20:34)
[2018-10-21] MEDS: FONDAPARINUX 2.5 MG/0.5 ML SQ SCH ×2 (08:25→12:39)
[2018-10-21] MEDS: RIFAXIMIN 550 MG TABLET PO SCH ×3 (08:25→20:34)
[2018-10-21] MEDS: SODIUM CHLORIDE FLUSH 10ML SYR IVF SCH ×2 (08:26→20:33)
[2018-10-21] MEDS: LACTULOSE 20 GM/30 ML UDC PO SCH ×4 (08:26→20:34)
[2018-10-21] MEDS: FUROSEMIDE 20 MG TABLET PO SCH ×2 (08:26→12:39)
[2018-10-21 13:43] VITALS: BP 124/74
[2018-10-21] MEDS: ACETAMINOPHEN 325 MG TABLET PO PRN (20:34)
[2018-10-21 21:00] VITALS: BP 115/76
[2018-10-22] MEDS: CEFAZOLIN 2,000 MG in SODIUM CHLORIDE 0.9% 50 ML IV SCH ×3 (01:12→17:24)
[2018-10-22 01:31] VITALS: BP 128/78
[2018-10-22] MEDS: CARVEDILOL 6.25 MG TABLET PO SCH ×2 (05:26→17:24)
[2018-10-22 06:56] VITALS: BP 117/72
[2018-10-22] MEDS: SODIUM CHLORIDE FLUSH 10ML SYR IVF SCH ×2 (08:19→20:50)
[2018-10-22] MEDS: LACTULOSE 20 GM/30 ML UDC PO SCH ×3 (08:22→20:54)
[2018-10-22] MEDS: LACTOBACILLUS CHEW TABLET PO SCH ×3 (08:22→20:54)
[2018-10-22] MEDS: FUROSEMIDE 20 MG TABLET PO SCH (08:22)
[2018-10-22] MEDS: RIFAXIMIN 550 MG TABLET PO SCH ×2 (08:22→20:55)
[2018-10-22] MEDS: FONDAPARINUX 2.5 MG/0.5 ML SQ SCH (08:22)
[2018-10-22 08:32] LABS: MEAN CORPUSCULAR HEMOGLOBIN 31.2 pg (27.5-34.5); MEAN CORPUSCULAR HGB CONC 33.2 g/dL (33.2-36.2); MEAN CORPUSCULAR VOLUME 94.2 fL (81-97); MEAN PLATELET VOLUME 7.9 fL (7.4-10.4); PLATELET COUNT 210 x10^3/uL (130-400); RED BLOOD COUNT 3.73 x10^6/uL (4.38-5.82); RED CELL DISTRIBUTION WIDTH 17.8 % (9.4-14.8)
[2018-10-22 08:41] LABS: ALANINE AMINOTRANSFERASE 40 U/L (12-78); ALBUMIN 3.2 g/dL (3.4-5.0); ANION GAP 6 mmol/L (5-15); BILIRUBIN, DIRECT 0.7 mg/dL (0.1-0.2); CALCIUM 8.6 mg/dL (8.5-10.1); CHLORIDE 109 mmol/L (98-107)
[2018-10-22 08:43] LABS: ALKALINE PHOSPHATASE 92 U/L (45-117); BILIRUBIN,INDIRECT 0.9 mg/dL (0.0-2.0); BILIRUBIN,TOTAL 1.6 mg/dL (0.2-1.0); CREATININE 0.74 mg/dL (0.7-1.3); TRIGLYCERIDES 49 mg/dL (50-200)
[2018-10-22 09:13] LABS: BASOPHILS # (AUTO) 0.03 x10^3/uL (0-0.1); BASOPHILS % (AUTO) 1 % (0-1); EOSINOPHILS % (AUTO) 9 % (1-7); LYMPHOCYTES # (AUTO) 1.31 x10^3/uL (1-3.4); LYMPHOCYTES % (AUTO) 39 % (22-44); MD SCAN; MONOCYTES # (AUTO) 0.57 x10^3/uL (0.2-0.8); MONOCYTES % (AUTO) 17 % (2-9); NEUTROPHILS # (AUTO) 1.16 x10^3/uL (1.8-6.8); NEUTROPHILS % (AUTO) 34 % (42-75)
[2018-10-22] MEDS ORDERED: LORazepam 2 MG/ML, 1ML IVPush ONE (14:30)
[2018-10-22 15:48] VITALS: BP 114/68
[2018-10-22 19:41] VITALS: BP 108/68
[2018-10-23] MEDS: CEFAZOLIN 2,000 MG in SODIUM CHLORIDE 0.9% 50 ML IV SCH ×3 (01:01→17:10)
[2018-10-23 01:47] VITALS: BP 131/80
[2018-10-23] MEDS: CARVEDILOL 6.25 MG TABLET PO SCH ×2 (05:10→17:10)
[2018-10-23 05:33] LABS: MEAN CORPUSCULAR HEMOGLOBIN 31.3 pg (27.5-34.5); MEAN CORPUSCULAR HGB CONC 33.6 g/dL (33.2-36.2); MEAN CORPUSCULAR VOLUME 93.3 fL (81-97); MEAN PLATELET VOLUME 8.2 fL (7.4-10.4); PLATELET COUNT 203 x10^3/uL (130-400); RED BLOOD COUNT 3.64 x10^6/uL (4.38-5.82); RED CELL DISTRIBUTION WIDTH 17.1 % (9.4-14.8)
[2018-10-23 05:39] LABS: ALBUMIN 3.3 g/dL (3.4-5.0); CALCIUM 8.9 mg/dL (8.5-10.1); CHLORIDE 109 mmol/L (98-107)
[2018-10-23 05:44] LABS: ALANINE AMINOTRANSFERASE 35 U/L (12-78); ALKALINE PHOSPHATASE 92 U/L (45-117); ANION GAP 6 mmol/L (5-15); BILIRUBIN, DIRECT 0.6 mg/dL (0.1-0.2); BILIRUBIN,INDIRECT 0.8 mg/dL (0.0-2.0); BILIRUBIN,TOTAL 1.4 mg/dL (0.2-1.0); CREATININE 0.75 mg/dL (0.7-1.3); TOTAL PROTEIN 7.8 g/dL (6.4-8.2)
[2018-10-23 06:20] LABS: BASOPHILS # (AUTO) 0.03 x10^3/uL (0-0.1); BASOPHILS % (AUTO) 1 % (0-1); EOSINOPHILS # (AUTO) 0.22 x10^3/uL (0-0.4); EOSINOPHILS % (AUTO) 6 % (1-7); LYMPHOCYTES # (AUTO) 1.78 x10^3/uL (1-3.4); LYMPHOCYTES % (AUTO) 45 % (22-44); MD SCAN; MONOCYTES # (AUTO) 0.68 x10^3/uL (0.2-0.8); MONOCYTES % (AUTO) 17 % (2-9); NEUTROPHILS # (AUTO) 1.28 x10^3/uL (1.8-6.8); NEUTROPHILS % (AUTO) 32 % (42-75)
[2018-10-23 07:30] VITALS: BP 114/68
[2018-10-23] MEDS: SODIUM CHLORIDE FLUSH 10ML SYR IVF SCH ×2 (07:56→20:59)
[2018-10-23] MEDS: LACTULOSE 20 GM/30 ML UDC PO SCH ×3 (07:57→20:59)
[2018-10-23] MEDS: FUROSEMIDE 20 MG TABLET PO SCH (07:58)
[2018-10-23] MEDS: RIFAXIMIN 550 MG TABLET PO SCH ×2 (07:58→20:58)
[2018-10-23] MEDS: LACTOBACILLUS CHEW TABLET PO SCH ×3 (08:02→20:59)
[2018-10-23] MEDS: FONDAPARINUX 2.5 MG/0.5 ML SQ SCH (08:02)
[2018-10-23] MEDS ORDERED: LORazepam 2 MG/ML, 1ML IVPush ONE (10:30)
[2018-10-23 12:00] VITALS: BP 124/76
[2018-10-24] MEDS: CEFAZOLIN 2,000 MG in SODIUM CHLORIDE 0.9% 50 ML IV SCH ×3 (00:32→19:13)
[2018-10-24 00:52] VITALS: BP 109/70
[2018-10-24] MEDS: CARVEDILOL 6.25 MG TABLET PO SCH ×3 (05:36→18:00)
[2018-10-24 07:59] VITALS: BP 119/71
[2018-10-24] MEDS: SODIUM CHLORIDE FLUSH 10ML SYR IVF SCH ×2 (09:00→21:49)
[2018-10-24] MEDS: FONDAPARINUX 2.5 MG/0.5 ML SQ SCH (09:00)
[2018-10-24] MEDS: LACTULOSE 20 GM/30 ML UDC PO SCH ×3 (09:00→21:50)
[2018-10-24] MEDS: LACTOBACILLUS CHEW TABLET PO SCH ×3 (09:00→21:50)
[2018-10-24] MEDS: RIFAXIMIN 550 MG TABLET PO SCH ×2 (09:00→21:50)
[2018-10-24] MEDS: FUROSEMIDE 20 MG TABLET PO SCH (09:00)
[2018-10-24 13:07] VITALS: BP 118/73
[2018-10-24 16:39] LABS: ALANINE AMINOTRANSFERASE 28 U/L (12-78); ALBUMIN 3.1 g/dL (3.4-5.0); ANION GAP 7 mmol/L (5-15); CHLORIDE 110 mmol/L (98-107)
[2018-10-24 16:42] LABS: ALKALINE PHOSPHATASE 96 U/L (45-117); BILIRUBIN,TOTAL 1.1 mg/dL (0.2-1.0); CREATININE 0.68 mg/dL (0.7-1.3); TOTAL PROTEIN 7.8 g/dL (6.4-8.2)
[2018-10-24 19:43] VITALS: BP 125/77
[2018-10-25 00:23] VITALS: BP 123/66
[2018-10-25] MEDS: CEFAZOLIN 2,000 MG in SODIUM CHLORIDE 0.9% 50 ML IV SCH ×3 (04:06→19:51)
[2018-10-25] MEDS: CARVEDILOL 6.25 MG TABLET PO SCH ×2 (06:00→21:13)
[2018-10-25] MEDS: FONDAPARINUX 2.5 MG/0.5 ML SQ SCH (08:50)
[2018-10-25] MEDS: LACTOBACILLUS CHEW TABLET PO SCH ×3 (08:51→21:00)
[2018-10-25] MEDS: FUROSEMIDE 20 MG TABLET PO SCH (08:51)
[2018-10-25] MEDS: SODIUM CHLORIDE FLUSH 10ML SYR IVF SCH ×2 (08:51→21:35)
[2018-10-25] MEDS: RIFAXIMIN 550 MG TABLET PO SCH ×2 (08:51→21:13)
[2018-10-25] MEDS: LACTULOSE 20 GM/30 ML UDC PO SCH ×3 (08:51→21:13)
[2018-10-25 14:00] VITALS: BP 123/66
[2018-10-25] MEDS ORDERED: LORazepam 2 MG/ML, 1ML ONE (14:27)
[2018-10-25] MEDS ORDERED: LORazepam 2 MG/ML, 1ML IVPush ONE (14:30)
[2018-10-25] MEDS ORDERED: GLYCOPYRROLATE 0.2MG/1ML, 5ML ONE (14:48)
[2018-10-25] MEDS ORDERED: PROPOFOL 10 MG/ML, 20ML ONE (14:48)
[2018-10-25] MEDS ORDERED: SUCCINYLCHOLINE 20 MG/ML, 10ML ONE (14:48)
[2018-10-25] MEDS ORDERED: DEXAMETHASONE 4 MG/ML, 1ML ONE (14:48)
[2018-10-25] MEDS ORDERED: ROCURONIUM 10MG/ML,5ML ONE (14:48)
[2018-10-25] MEDS ORDERED: NEOSTIGMINE 1 MG/ML, 10ML ONE (14:48)
[2018-10-25] MEDS ORDERED: ONDANSETRON 2MG/ML, 2ML ONE (14:48)
[2018-10-25 14:59] LABS: BASOPHILS # (AUTO) 0.01 x10^3/uL (0-0.1); BASOPHILS % (AUTO) 0 % (0-1); EOSINOPHILS # (AUTO) 0.03 x10^3/uL (0-0.4); EOSINOPHILS % (AUTO) 1 % (1-7); LYMPHOCYTES % (AUTO) 24 % (22-44); MEAN CORPUSCULAR HEMOGLOBIN 31.1 pg (27.5-34.5); MEAN CORPUSCULAR HGB CONC 33.4 g/dL (33.2-36.2); MEAN CORPUSCULAR VOLUME 93.1 fL (81-97); MEAN PLATELET VOLUME 8.5 fL (7.4-10.4); MONOCYTES # (AUTO) 0.05 x10^3/uL (0.2-0.8); MONOCYTES % (AUTO) 2 % (2-9); NEUTROPHILS # (AUTO) 2.14 x10^3/uL (1.8-6.8); NEUTROPHILS % (AUTO) 73 % (42-75); PLATELET COUNT 192 x10^3/uL (130-400); RED BLOOD COUNT 4.15 x10^6/uL (4.38-5.82); RED CELL DISTRIBUTION WIDTH 17.9 % (9.4-14.8)
[2018-10-25 15:00] LABS: MD NO
[2018-10-25 15:17] LABS: ALANINE AMINOTRANSFERASE 27 U/L (12-78); ALBUMIN 3.2 g/dL (3.4-5.0); ANION GAP 6 mmol/L (5-15); CALCIUM 8.5 mg/dL (8.5-10.1); CHLORIDE 112 mmol/L (98-107)
[2018-10-25 15:19] LABS: ALKALINE PHOSPHATASE 98 U/L (45-117); BILIRUBIN,TOTAL 1.2 mg/dL (0.2-1.0); CREATININE 0.69 mg/dL (0.7-1.3); TOTAL PROTEIN 8.3 g/dL (6.4-8.2)
--- NOTE | 2018-10-25 16:11 | NUR ---
Promote with fiber final goal: 65 mls/hr Addendum: 10/25/18 at [address] Amended: Links added.
[2018-10-25] MEDS ORDERED: POTASSIUM PHOSPHATE 22 MEQ in SODIUM CHLORIDE 0.9% 500 ML IV ONE (18:30)
[2018-10-25] MEDS ORDERED: MAGNESIUM SULFATE PMX 2GM/50ML 50 ML IV ONE (18:30)
[2018-10-25 20:18] VITALS: BP 143/89
[2018-10-26] MEDS: ACETAMINOPHEN 325 MG TABLET PO PRN ×4 (01:24→19:57)
[2018-10-26 01:30] VITALS: BP 120/77
[2018-10-26] MEDS: CEFAZOLIN PMX 2GM/50ML 50 ML IVPB SCH ×3 (04:06→19:57)
[2018-10-26] MEDS: CARVEDILOL 6.25 MG TABLET PO SCH ×2 (05:51→17:47)
[2018-10-26 06:35] LABS: ALANINE AMINOTRANSFERASE 23 U/L (12-78); ALBUMIN 3.1 g/dL (3.4-5.0); ANION GAP 6 mmol/L (5-15); CHLORIDE 111 mmol/L (98-107); CREATININE 0.79 mg/dL (0.7-1.3)
[2018-10-26 06:38] LABS: ALKALINE PHOSPHATASE 95 U/L (45-117); BILIRUBIN,TOTAL 0.9 mg/dL (0.2-1.0); TOTAL PROTEIN 7.8 g/dL (6.4-8.2)
[2018-10-26 07:04] LABS: BASOPHILS # (AUTO) 0.01 x10^3/uL (0-0.1); BASOPHILS % (AUTO) 0 % (0-1); EOSINOPHILS % (AUTO) 0 % (1-7); LYMPHOCYTES # (AUTO) 1.21 x10^3/uL (1-3.4); LYMPHOCYTES % (AUTO) 24 % (22-44); MD NO; MEAN CORPUSCULAR HEMOGLOBIN 31.1 pg (27.5-34.5); MEAN CORPUSCULAR HGB CONC 33.1 g/dL (33.2-36.2); MEAN CORPUSCULAR VOLUME 94.1 fL (81-97); MEAN PLATELET VOLUME 8.8 fL (7.4-10.4); MONOCYTES # (AUTO) 0.52 x10^3/uL (0.2-0.8); MONOCYTES % (AUTO) 10 % (2-9); NEUTROPHILS # (AUTO) 3.33 x10^3/uL (1.8-6.8); NEUTROPHILS % (AUTO) 66 % (42-75); PLATELET COUNT 229 x10^3/uL (130-400); RED BLOOD COUNT 3.94 x10^6/uL (4.38-5.82); RED CELL DISTRIBUTION WIDTH 17.9 % (9.4-14.8)
[2018-10-26] MEDS: SODIUM CHLORIDE FLUSH 10ML SYR IVF SCH ×2 (08:04→19:57)
[2018-10-26] MEDS: LACTULOSE 20 GM/30 ML UDC PO SCH ×3 (08:19→23:43)
[2018-10-26] MEDS: LACTOBACILLUS CHEW TABLET PO SCH ×3 (08:19→19:57)
[2018-10-26] MEDS: FUROSEMIDE 20 MG TABLET PO SCH (08:19)
[2018-10-26] MEDS: RIFAXIMIN 550 MG TABLET PO SCH ×2 (08:19→19:57)
[2018-10-26] MEDS: FONDAPARINUX 2.5 MG/0.5 ML SQ SCH (08:20)
[2018-10-26 08:31] VITALS: BP 120/73
[2018-10-26 13:50] VITALS: BP 118/70
[2018-10-26 19:34] VITALS: BP 116/70
[2018-10-27] VITALS: BP 142/92
[2018-10-27] MEDS: ACETAMINOPHEN 325 MG TABLET PO PRN (00:05)
[2018-10-27] MEDS: CEFAZOLIN PMX 2GM/50ML 50 ML IVPB SCH ×3 (04:39→20:47)
[2018-10-27] MEDS: CARVEDILOL 6.25 MG TABLET PO SCH ×2 (05:38→17:54)
[2018-10-27 06:12] VITALS: BP 121/77
[2018-10-27 06:59] LABS: BASOPHILS # (AUTO) 0.02 x10^3/uL (0-0.1); BASOPHILS % (AUTO) 0 % (0-1); EOSINOPHILS # (AUTO) 0.18 x10^3/uL (0-0.4); EOSINOPHILS % (AUTO) 3 % (1-7); LYMPHOCYTES # (AUTO) 1.64 x10^3/uL (1-3.4); LYMPHOCYTES % (AUTO) 30 % (22-44); MD NO; MEAN CORPUSCULAR HEMOGLOBIN 31.3 pg (27.5-34.5); MEAN CORPUSCULAR HGB CONC 33.2 g/dL (33.2-36.2); MEAN CORPUSCULAR VOLUME 94.3 fL (81-97); MEAN PLATELET VOLUME 8.8 fL (7.4-10.4); MONOCYTES # (AUTO) 0.62 x10^3/uL (0.2-0.8); MONOCYTES % (AUTO) 11 % (2-9); NEUTROPHILS # (AUTO) 3.06 x10^3/uL (1.8-6.8); NEUTROPHILS % (AUTO) 56 % (42-75); PLATELET COUNT 203 x10^3/uL (130-400); RED BLOOD COUNT 3.76 x10^6/uL (4.38-5.82)
[2018-10-27 07:00] LABS: ANION GAP 5 mmol/L (5-15); CALCIUM 8.5 mg/dL (8.5-10.1); CHLORIDE 111 mmol/L (98-107); CREATININE 0.65 mg/dL (0.7-1.3)
[2018-10-27] MEDS: FUROSEMIDE 20 MG TABLET PO SCH (09:00)
[2018-10-27] MEDS: SODIUM CHLORIDE FLUSH 10ML SYR IVF SCH ×2 (09:00→20:47)
[2018-10-27] MEDS: RIFAXIMIN 550 MG TABLET PO SCH ×2 (09:00→20:58)
[2018-10-27] MEDS: LACTULOSE 20 GM/30 ML UDC PO SCH ×4 (09:00→20:59)
[2018-10-27] MEDS: LACTOBACILLUS CHEW TABLET PO SCH ×3 (09:00→20:58)
[2018-10-27] MEDS: FONDAPARINUX 2.5 MG/0.5 ML SQ SCH (11:38)
[2018-10-27 14:25] VITALS: BP 113/71
[2018-10-27 19:23] VITALS: BP 124/78
[2018-10-28 01:40] VITALS: BP 147/89
[2018-10-28] MEDS: CEFAZOLIN PMX 2GM/50ML 50 ML IVPB SCH (04:32)
[2018-10-28] MEDS: CARVEDILOL 6.25 MG TABLET PO SCH ×2 (04:52→17:17)
[2018-10-28 05:41] LABS: BASOPHILS # (AUTO) 0.02 x10^3/uL (0-0.1); BASOPHILS % (AUTO) 0 % (0-1); EOSINOPHILS # (AUTO) 0.22 x10^3/uL (0-0.4); EOSINOPHILS % (AUTO) 5 % (1-7); LYMPHOCYTES # (AUTO) 2.04 x10^3/uL (1-3.4); LYMPHOCYTES % (AUTO) 47 % (22-44); MD NO; MEAN CORPUSCULAR HEMOGLOBIN 31.2 pg (27.5-34.5); MEAN CORPUSCULAR HGB CONC 33.3 g/dL (33.2-36.2); MEAN CORPUSCULAR VOLUME 93.7 fL (81-97); MEAN PLATELET VOLUME 9.1 fL (7.4-10.4); MONOCYTES # (AUTO) 0.56 x10^3/uL (0.2-0.8); MONOCYTES % (AUTO) 13 % (2-9); NEUTROPHILS # (AUTO) 1.52 x10^3/uL (1.8-6.8); NEUTROPHILS % (AUTO) 35 % (42-75); PLATELET COUNT 216 x10^3/uL (130-400); RED BLOOD COUNT 3.82 x10^6/uL (4.38-5.82); RED CELL DISTRIBUTION WIDTH 17.4 % (9.4-14.8)
[2018-10-28 05:48] LABS: ALBUMIN 2.8 g/dL (3.4-5.0); ANION GAP 4 mmol/L (5-15); CALCIUM 8.4 mg/dL (8.5-10.1); CHLORIDE 113 mmol/L (98-107)
[2018-10-28 05:51] LABS: ALANINE AMINOTRANSFERASE 20 U/L (12-78); ALKALINE PHOSPHATASE 90 U/L (45-117); BILIRUBIN,TOTAL 0.9 mg/dL (0.2-1.0); CREATININE 0.57 mg/dL (0.7-1.3); TRIGLYCERIDES 52 mg/dL (50-200)
[2018-10-28 06:59] VITALS: BP 124/77
[2018-10-28] MEDS: FUROSEMIDE 20 MG TABLET PO SCH (09:00)
[2018-10-28] MEDS: LACTULOSE 20 GM/30 ML UDC PO SCH ×3 (09:00→20:09)
[2018-10-28] MEDS: SODIUM CHLORIDE FLUSH 10ML SYR IVF SCH ×2 (09:00→20:08)
[2018-10-28] MEDS: RIFAXIMIN 550 MG TABLET PO SCH ×3 (10:11→20:13)
[2018-10-28] MEDS: LACTOBACILLUS CHEW TABLET PO SCH ×4 (10:11→20:13)
[2018-10-28] MEDS: FONDAPARINUX 2.5 MG/0.5 ML SQ SCH ×2 (10:12→10:20)
[2018-10-28 12:53] VITALS: BP 121/79
--- NOTE | 2018-10-28 15:09 | NUR ---
EQUIPMENT WORKER recommends upgrade to SOFT/ NTL diet: -1:1 assist -NO STRAWS -Up for all meals -Meds floated Addendum: 10/28/18 at [address] Amended: Links added.
[2018-10-28 19:48] VITALS: BP 128/81
[2018-10-28] MEDS ORDERED: CEFAZOLIN PMX 2GM/50ML 50 ML IVPB SCH (20:00)
[2018-10-29 01:22] VITALS: BP 109/73
[2018-10-29 04:41] LABS: BASOPHILS # (AUTO) 0.01 x10^3/uL (0-0.1); BASOPHILS % (AUTO) 0 % (0-1); EOSINOPHILS # (AUTO) 0.17 x10^3/uL (0-0.4); EOSINOPHILS % (AUTO) 4 % (1-7); LYMPHOCYTES % (AUTO) 40 % (22-44); MD NO; MEAN CORPUSCULAR HEMOGLOBIN 31.3 pg (27.5-34.5); MEAN CORPUSCULAR HGB CONC 33.5 g/dL (33.2-36.2); MEAN CORPUSCULAR VOLUME 93.4 fL (81-97); MONOCYTES % (AUTO) 15 % (2-9); NEUTROPHILS # (AUTO) 1.59 x10^3/uL (1.8-6.8); NEUTROPHILS % (AUTO) 40 % (42-75); PLATELET COUNT 193 x10^3/uL (130-400); RED BLOOD COUNT 3.87 x10^6/uL (4.38-5.82); RED CELL DISTRIBUTION WIDTH 17.7 % (9.4-14.8)
[2018-10-29 04:51] LABS: CHLORIDE 112 mmol/L (98-107)
[2018-10-29 04:55] LABS: ANION GAP 8 mmol/L (5-15); CALCIUM 8.5 mg/dL (8.5-10.1); CREATININE 0.58 mg/dL (0.7-1.3)
[2018-10-29] MEDS: CARVEDILOL 6.25 MG TABLET PO SCH ×2 (05:28→17:24)
[2018-10-29 07:02] VITALS: BP 128/73
[2018-10-29] MEDS: RIFAXIMIN 550 MG TABLET PO SCH ×2 (09:00→21:00)
[2018-10-29] MEDS: SODIUM CHLORIDE FLUSH 10ML SYR IVF SCH ×2 (09:00→21:00)
[2018-10-29] MEDS: LACTOBACILLUS CHEW TABLET PO SCH ×3 (09:00→21:00)
[2018-10-29] MEDS: LACTULOSE 20 GM/30 ML UDC PO SCH ×3 (09:00→21:00)
[2018-10-29] MEDS: FUROSEMIDE 20 MG TABLET PO SCH (09:00)
[2018-10-29 12:27] VITALS: BP 116/76
[2018-10-29 20:07] VITALS: BP 148/90
[2018-10-30 03:17] VITALS: BP 135/85
[2018-10-30 05:08] LABS: BASOPHILS # (AUTO) 0.02 x10^3/uL (0-0.1); BASOPHILS % (AUTO) 0 % (0-1); EOSINOPHILS % (AUTO) 1 % (1-7); LYMPHOCYTES # (AUTO) 1.53 x10^3/uL (1-3.4); LYMPHOCYTES % (AUTO) 17 % (22-44); MD NO; MEAN CORPUSCULAR HEMOGLOBIN 31.1 pg (27.5-34.5); MEAN CORPUSCULAR HGB CONC 33.2 g/dL (33.2-36.2); MEAN CORPUSCULAR VOLUME 93.5 fL (81-97); MEAN PLATELET VOLUME 8.8 fL (7.4-10.4); MONOCYTES % (AUTO) 10 % (2-9); NEUTROPHILS # (AUTO) 6.25 x10^3/uL (1.8-6.8); NEUTROPHILS % (AUTO) 71 % (42-75); PLATELET COUNT 212 x10^3/uL (130-400); RED BLOOD COUNT 4.31 x10^6/uL (4.38-5.82); RED CELL DISTRIBUTION WIDTH 17.8 % (9.4-14.8)
[2018-10-30 05:13] LABS: ANION GAP 7 mmol/L (5-15); CALCIUM 8.9 mg/dL (8.5-10.1); CHLORIDE 109 mmol/L (98-107)
[2018-10-30 05:14] LABS: CREATININE 0.66 mg/dL (0.7-1.3)
[2018-10-30] MEDS: CARVEDILOL 6.25 MG TABLET PO SCH ×2 (05:59→16:59)
[2018-10-30 07:46] VITALS: BP 120/77
[2018-10-30] MEDS: LACTOBACILLUS CHEW TABLET PO SCH ×3 (09:00→22:29)
[2018-10-30] MEDS: FUROSEMIDE 20 MG TABLET PO SCH (09:00)
[2018-10-30] MEDS: SODIUM CHLORIDE FLUSH 10ML SYR IVF SCH ×2 (09:00→22:30)
[2018-10-30] MEDS: FONDAPARINUX 2.5 MG/0.5 ML SQ SCH (09:00)
[2018-10-30] MEDS: RIFAXIMIN 550 MG TABLET PO SCH ×2 (09:00→22:29)
[2018-10-30] MEDS: LACTULOSE 20 GM/30 ML UDC PO SCH ×3 (09:00→22:29)
[2018-10-30 14:58] VITALS: BP 111/76
[2018-10-30 20:58] VITALS: BP 137/79
[2018-10-31 01:00] VITALS: BP 138/85
[2018-10-31] MEDS: CARVEDILOL 6.25 MG TABLET PO SCH ×2 (06:00→17:13)
[2018-10-31] MEDS ORDERED: ACETAMINOPHEN 325 MG TABLET PO PRN (08:00)
[2018-10-31] MEDS ORDERED: MAGNESIUM SULFATE PMX 2GM/50ML 50 ML IV ONE (08:00)
[2018-10-31] MEDS: LACTOBACILLUS CHEW TABLET PO SCH ×3 (09:00→19:53)
[2018-10-31] MEDS: LACTULOSE 20 GM/30 ML UDC PO SCH ×3 (09:00→19:54)
[2018-10-31] MEDS: RIFAXIMIN 550 MG TABLET PO SCH ×2 (09:00→19:54)
[2018-10-31] MEDS: FONDAPARINUX 2.5 MG/0.5 ML SQ SCH (09:00)
[2018-10-31] MEDS: SODIUM CHLORIDE FLUSH 10ML SYR IVF SCH ×2 (09:00→21:00)
[2018-10-31 15:11] VITALS: BP 129/74
[2018-10-31 19:27] VITALS: BP 133/86
[2018-11-01 00:26] VITALS: BP 130/82
[2018-11-01] MEDS: CARVEDILOL 6.25 MG TABLET PO SCH (05:49)
[2018-11-01 07:00] VITALS: BP 123/79
[2018-11-01] MEDS: RIFAXIMIN 550 MG TABLET PO SCH (09:00)
[2018-11-01] MEDS: LACTOBACILLUS CHEW TABLET PO SCH (09:00)
[2018-11-01] MEDS: SODIUM CHLORIDE FLUSH 10ML SYR IVF SCH (09:00)
[2018-11-01] MEDS: FONDAPARINUX 2.5 MG/0.5 ML SQ SCH (09:00)
[2018-11-01] MEDS ORDERED: LACTULOSE 20 GM/30 ML UDC PO SCH (09:00)
[2018-11-01] MEDS ORDERED: ACET325T14 PO (12:05)
[2018-11-01] MEDS ORDERED: CARV6.2512 PO (12:05)
[2018-11-01] MEDS ORDERED: ACID1TAB7 PO (12:05)
== END 2018-11-01 16:50 | DRG 870 ==
LOC: ED 16:49 → SUATTDRO 17:50 → MERGE 17:52 → EDIP 17:52 → EDBD 17:52 → CCU 19:27 → 3NE 10-16 11:46
PROVIDERS: ADMIT Internal Medicine; ATTEND Internal Medicine
PROC: 0T9B70Z Drainage of Bladder with Drainage Device, Via Natural or Artificial Opening (ICD-10-PCS; principal; 2018-09-25)
PROC: 5A1955Z Respiratory Ventilation, Greater than 96 Consecutive Hours (ICD-10-PCS; 2018-09-25)
PROC: 0BH17EZ Insertion of Endotracheal Airway into Trachea, Via Natural or Artificial Opening (ICD-10-PCS; 2018-09-25)
PROC: 02HV33Z Insertion of Infusion Device into Superior Vena Cava, Percutaneous Approach (ICD-10-PCS; 2018-09-25)
PROC: B548ZZA Ultrasonography of Superior Vena Cava, Guidance (ICD-10-PCS; 2018-09-25)
DX: A41.01 Sepsis due to Methicillin susceptible Staphylococcus aureus (principal); E43 Unspecified severe protein-calorie malnutrition; G92 Toxic encephalopathy; J15.211 Pneumonia due to Methicillin susceptible Staphylococcus aureus; J69.0 Pneumonitis due to inhalation of food and vomit; J96.01 Acute respiratory failure with hypoxia; N17.0 Acute kidney failure with tubular necrosis; R65.21 Severe sepsis with septic shock; D68.4 Acquired coagulation factor deficiency; E87.0 Hyperosmolality and hypernatremia; E87.1 Hypo-osmolality and hyponatremia; E87.2 Acidosis; F10.239 Alcohol dependence with withdrawal, unspecified; I48.92 Unspecified atrial flutter; J81.1 Chronic pulmonary edema; K56.7 Ileus, unspecified; M62.82 Rhabdomyolysis; N30.00 Acute cystitis without hematuria; R47.01 Aphasia; Z99.11 Dependence on respirator [ventilator] status; B18.2 Chronic viral hepatitis C; B85.2 Pediculosis, unspecified; B96.4 Proteus (mirabilis) (morganii) as the cause of diseases classified elsewhere; D63.8 Anemia in other chronic diseases classified elsewhere; D75.82 Heparin induced thrombocytopenia (HIT); E66.9 Obesity, unspecified; E83.42 Hypomagnesemia; E86.0 Dehydration; E87.70 Fluid overload, unspecified; F11.90 Opioid use, unspecified, uncomplicated; F12.10 Cannabis abuse, uncomplicated; F15.10 Other stimulant abuse, uncomplicated; F17.210 Nicotine dependence, cigarettes, uncomplicated; F22 Delusional disorders; I10 Essential (primary) hypertension; I27.20 Pulmonary hypertension, unspecified; I86.8 Varicose veins of other specified sites; I87.8 Other specified disorders of veins; K80.20 Calculus of gallbladder without cholecystitis without obstruction; T68.XXXA Hypothermia, initial encounter; K40.20 Bilateral inguinal hernia, without obstruction or gangrene, not specified as recurrent; K70.30 Alcoholic cirrhosis of liver without ascites; K72.90 Hepatic failure, unspecified without coma; N20.0 Calculus of kidney; R13.10 Dysphagia, unspecified; Z78.1 Physical restraint status; Z90.49 Acquired absence of other specified parts of digestive tract; Z68.32 Body mass index [BMI] 32.0-32.9, adult
CPT/HCPCS: 36415; 36600; 70450; 70544; 70553; 71045; 71250; 74018; 74176; 74181; 74230; 76700; 80048; 80053; 80074; 80076; 80202; 80307; 81001; 82040; 82140; 82533; 82550; 82803; 82962; 83605; 83735; 83880; 84100; 84145; 84295; 84439; 84443; 84478; 84481; 84484; 85025; 85610; 85651; 85730; 86022; 86140; 87040; 87070; 87077; 87081; 87086; 87147; 87186; 87205; 87521; 87806; 93005; 93306; 94002; 94003; 94640; 99291; 99292; A9585; G0378; J0295; J0690; J0696; J1100; J1335; J1644; J1940; J2405; J2543; J2704; J2710; J3010; J3360; J3370; J3411; J3480; J3486; J7070; J7613; J7620; P9047; C9113; G0475; J0330; J1120; J1652; J1720; J2060; J2765; J3475; J3490; J7030; J7040; J7050; J7060; J7120

== ENCOUNTER 2021-02-08 15:34 | Emergency (ER) | payer MEDICAID ==
[~2021-02-08] VITALS: Ht 180.3 cm; Wt 113.6 kg
[~2021-02-08 15:34] MED LIST changes: +ACET325T14 PO; +ACID1TAB7 PO; +CARV6.2512 PO; -ETOMIDATE 40 MG/20 ML ONE; -OXYC5TAB3 PO; +OXYC5TAB98 PO; -PROPOFOL 10 MG/ML, 100ML IV ONE
--- NOTE | 2021-02-08 15:54 | NUR ---
PT BIB EMS FOR LOWER ABD PAIN. PT HAS MOST RECENLTY BEEN SEEN AT [facility], BUT PT COULD NOT ELABORATE. PT C/O LOWER ABD PAIN THAT WORSENS WITH MOVEMENT. PT ALSO STATES HE BEEN HAVING INCREASED TROUBLE WALKING. PT HAS 4+ PEDAL EDEMA. NO OTHER PHYSCIAL COMPLAINTS AT THIS TIME.
[2021-02-08 16:20] LABS: ALANINE AMINOTRANSFERASE 44 U/L (12-78); ALBUMIN 1.7 g/dL (3.4-5.0); ANION GAP 7 mmol/L (5-15); CALCIUM 8.5 mg/dL (8.5-10.1); CHLORIDE 112 mmol/L (98-107)
[2021-02-08 16:22] LABS: BASOPHILS % (AUTO) 1 % (0-1); EOSINOPHILS % (AUTO) 4 % (1-7); LYMPHOCYTES % (AUTO) 28 % (22-44); MEAN CORPUSCULAR HEMOGLOBIN 31.5 pg (27.5-34.5); MEAN CORPUSCULAR HGB CONC 33.7 g/dL (33.2-36.2); MEAN PLATELET VOLUME 6.8 fL (7.4-10.4); MONOCYTES % (AUTO) 13 % (2-9); NEUTROPHILS % (AUTO) 54 % (42-75); PLATELET COUNT 238 x10^3/uL (130-400)
[2021-02-08 16:23] LABS: ALKALINE PHOSPHATASE 105 U/L (45-117); BILIRUBIN,TOTAL 1.4 mg/dL (0.2-1.0); CREATININE 1.18 mg/dL (0.7-1.3); TOTAL PROTEIN 7.3 g/dL (6.4-8.2)
--- NOTE | 2021-02-08 17:06 | NUR ---
PT APPEARING CONFUSED CURRENTLY. PT MAKING STATEMENTS HE IS AT [facility] AND THAT PEOPLE AR TRYING TO HURT HIM, BUT CAN'T SAY WHO. PT REORIENTS QUICKLY AND CONFIRMS THAT HE IS AT [facility] [place] AFTER REORIENTING. PT ALSO REQUESTING WATER AND WAS ADVISED HE CAN HAVE SOME WATER AFTER WE CHECK HIM OUT.
[2021-02-08 18:04] VITALS: BP 109/67
--- NOTE | 2021-02-08 18:04 | NUR ---
PT REC'VD DISCHARGE INSTRUCTIONS AND EDUCATION. PT HAD NO FURTHER QUESTIONS. PT IN WHEELCHAIR WITH BELONGINGS AND CANE TO DC AREA.
== END 2021-02-08 18:29 | disposition home or self-care (01) ==
LOC: ED 18:00
DX: S39.012A Strain of muscle, fascia and tendon of lower back, initial encounter (principal); S33.5XXA Sprain of ligaments of lumbar spine, initial encounter; B35.6 Tinea cruris; I11.0 Hypertensive heart disease with heart failure; I50.9 Heart failure, unspecified; I25.2 Old myocardial infarction; Z86.73 Personal history of transient ischemic attack (TIA), and cerebral infarction without residual deficits; F17.200 Nicotine dependence, unspecified, uncomplicated; Z88.6 Allergy status to analgesic agent; Z88.8 Allergy status to other drugs, medicaments and biological substances; W18.30XA Fall on same level, unspecified, initial encounter; Y93.89 Activity, other specified; Y92.89 Other specified places as the place of occurrence of the external cause; Y99.8 Other external cause status
CPT/HCPCS: 36415; 72110; 80053; 85025; 99284

== ENCOUNTER 2021-02-10 16:38 | Emergency (ER) | payer MEDICAID, MEDICARE ==
[~2021-02-10] VITALS: Ht 177.8 cm; Wt 110.6 kg
[2021-02-10 17:03] VITALS: BP 117/77
[2021-02-10 18:19] LABS: BASOPHILS % (AUTO) 0 % (0-1); EOSINOPHILS % (AUTO) 5 % (1-7); LYMPHOCYTES % (AUTO) 38 % (22-44); MEAN CORPUSCULAR HEMOGLOBIN 31.5 pg (27.5-34.5); MEAN CORPUSCULAR HGB CONC 33.7 g/dL (33.2-36.2); MEAN PLATELET VOLUME 6.8 fL (7.4-10.4); MONOCYTES % (AUTO) 11 % (2-9); NEUTROPHILS % (AUTO) 45 % (42-75); PLATELET COUNT 239 x10^3/uL (130-400); RED BLOOD COUNT 3.82 x10^6/uL (4.38-5.82)
[2021-02-10 18:24] LABS: MICROSCOPIC INDICATED
[2021-02-10 18:31] LABS: AMPHETAMINE SCREEN, URINE Negative (Negative); BARBITURATE SCREEN, URINE Negative (Negative); BENZODIAZEPINE SCREEN, URINE Negative (Negative); CANNABINOID SCREEN, URINE Positive (Negative); COCAINE SCREEN, URINE Negative (Negative)
[2021-02-10 18:32] LABS: ALBUMIN 1.8 g/dL (3.4-5.0); ANION GAP 8 mmol/L (5-15); CALCIUM 8.7 mg/dL (8.5-10.1); CHLORIDE 112 mmol/L (98-107)
[2021-02-10 18:33] LABS: METHADONE SCREEN, URINE Negative (Negative); OPIATE SCREEN, URINE Negative (Negative)
[2021-02-10 18:35] LABS: ALANINE AMINOTRANSFERASE 43 U/L (12-78); ALKALINE PHOSPHATASE 118 U/L (45-117); BILIRUBIN,TOTAL 1.4 mg/dL (0.2-1.0); TOTAL PROTEIN 7.4 g/dL (6.4-8.2)
--- NOTE | 2021-02-10 18:51 | NUR ---
DINNER TRAY PROVIDED TO PT.
--- NOTE | 2021-02-10 20:00 | NUR ---
NEW PANTS PROVIDED TO PT HIS WERE SOILED. D/C INSTRUCTIONS & F/U APPT PROVIDED TO PT. ASSISTED PT INTO WHEELCHAIR. CAB VOUCHER PROVIDED BACK TO [facility].
== END 2021-02-10 20:05 | disposition home or self-care (01) ==
LOC: ED 17:08
DX: Z00.00 Encounter for general adult medical examination without abnormal findings (principal); I25.2 Old myocardial infarction; I11.0 Hypertensive heart disease with heart failure; I50.9 Heart failure, unspecified; Z86.73 Personal history of transient ischemic attack (TIA), and cerebral infarction without residual deficits; Z86.19 Personal history of other infectious and parasitic diseases
CPT/HCPCS: 36415; 80053; 80307; 80320; 81001; 85025; 87077; 87086; 87186; 99283; G0480

== ENCOUNTER 2021-02-11 05:15 | Inpatient (IN) | payer MEDICAID ==
[~2021-02-11] VITALS: Ht 172.7 cm; Wt 110.8 kg
--- NOTE | 2021-02-11 05:26 | NUR ---
BIB EMS for eating styrofoam on [facility]. Hx of dementia, no chief complaint but socntinuously yelling "help me". When asked how we can help pt just states "c'mon man help me". Pt has chronic lower leg edema. Pt looks like he is unable to care for himself. All VSS, WCTM
[2021-02-11 06:01] LABS: BASOPHILS % (AUTO) 1 % (0-1); EOSINOPHILS % (AUTO) 2 % (1-7); LYMPHOCYTES % (AUTO) 15 % (22-44); MEAN CORPUSCULAR HEMOGLOBIN 31.6 pg (27.5-34.5); MEAN PLATELET VOLUME 6.5 fL (7.4-10.4); MONOCYTES % (AUTO) 13 % (2-9); NEUTROPHILS % (AUTO) 69 % (42-75); PLATELET COUNT 247 x10^3/uL (130-400); RED BLOOD COUNT 3.66 x10^6/uL (4.38-5.82); RED CELL DISTRIBUTION WIDTH 16.9 % (9.4-14.8)
[2021-02-11 06:08] LABS: ALBUMIN 1.7 g/dL (3.4-5.0); ANION GAP 6 mmol/L (5-15); CALCIUM 8.5 mg/dL (8.5-10.1); CHLORIDE 112 mmol/L (98-107)
[2021-02-11 06:19] LABS: ALANINE AMINOTRANSFERASE 43 U/L (12-78); ALKALINE PHOSPHATASE 104 U/L (45-117); BILIRUBIN,TOTAL 1.6 mg/dL (0.2-1.0); CREATININE 1.04 mg/dL (0.7-1.3); TOTAL PROTEIN 7.2 g/dL (6.4-8.2)
[2021-02-11 06:35] LABS: SALICYLATE LEVEL < 1.7 mg/dL (2.8-20.0)
--- NOTE | 2021-02-11 07:10 | NUR ---
RECEIVED BEDSIDE REPORT FROM JESSICA CANTOR. CARE ASSUMED. PT ALTERED, BASELINE PER JESSICA RN, HX DEMENTIA. SITTER REQUESTED AND AT BEDSIDE FOR PT SAFETY. PT NEEDS RE-DIRECTION AND MONITORING TO STAY IN BED. CONT PULSE OX, BP, CARDIAC MONITORS APPLIED. ST ON MONITOR. DENIES ANY PAIN AND NEED TO USE RESRTROOM. PT IN WET SOILED CLOTHING, REMOVED, CLEANSED AND PLACE ON CLEAN BEDDING AND IN GOWN. ADULT SERVICES LIBRARIAN AT BEDSIDE FOR EKG. TO PLACE IV FOR ADMISSION. CALL LIGHT IN REACH. FALL PRECUATIONS IN PLACE. SIDE RAILS UPX2. AWAITING ROOM ASSIGNMENT ON FLOOR.
--- NOTE | 2021-02-11 08:00 | NUR ---
ADMITTING PROVIDER AT BEDSIDE FOR EVAL
--- NOTE | 2021-02-11 08:10 | NUR ---
ROOM 344 RECEIVED, ATTEMPT X1 TO CALL REPORT TO FLOOR RN AT THIS TIME
--- NOTE | 2021-02-11 08:16 | NUR ---
REPORT AND CARE TO KALA CANTOR AT THIS TIME. PT READY FOR TRANSPORT TO FLOOR
[2021-02-11] MEDS ORDERED: hydrALAzine 20 MG/ML, 1ML IVPush PRN (08:30)
[2021-02-11] MEDS ORDERED: ONDANSETRON 2MG/ML, 2ML IVPush PRN (08:30)
[2021-02-11 08:34] LABS: HCT (SEDRATE) 34.1 % (39.2-51.8)
[2021-02-11 08:42] LABS: INTERNATIONAL NORMALIZED RATIO 1.28 (0.93-1.1); PROTHROMBIN TIME 13.5 Seconds (9.6-11.5)
[2021-02-11 08:48] LABS: C-REACTIVE PROTEIN, QUANT 1.8 mg/dL (0.02-0.49)
[2021-02-11] MEDS: LACTULOSE 10 GM/15 ML UDC PO SCH ×2 (09:00→21:00)
[2021-02-11] MEDS: RIFAXIMIN 550 MG TABLET PO SCH (10:00)
[2021-02-11] MEDS: MORPHINE SULFATE 4 MG/ML, 1ML IVPush PRN ×2 (10:09→11:55)
[2021-02-11] MEDS ORDERED: HALOPERIDOL 5 MG/ML IM ONE (11:00)
[2021-02-11] MEDS: FLUCONAZOLE 200 MG/100 ML 100 ML IV SCH (15:23)
[2021-02-11] MEDS: FONDAPARINUX 2.5 MG/0.5 ML SQ SCH (15:25)
[2021-02-11] MEDS: AMPICILLIN/SULBACTAM 3 GM in SODIUM CHLORIDE 0.9% 100 ML IV SCH ×2 (16:54→18:45)
[2021-02-11 19:00] VITALS: BP 116/67
[2021-02-12] MEDS: AMPICILLIN/SULBACTAM 3 GM in SODIUM CHLORIDE 0.9% 100 ML IV SCH ×5 (00:23→20:11)
[2021-02-12 00:32] VITALS: BP 103/67
[2021-02-12 05:38] VITALS: BP 115/73
[2021-02-12] MEDS: MORPHINE SULFATE 4 MG/ML, 1ML IVPush PRN ×4 (05:38→21:08)
[2021-02-12] MEDS: LACTULOSE 10 GM/15 ML UDC PO SCH ×2 (05:58→21:08)
[2021-02-12 06:11] LABS: AMPHETAMINE SCREEN, URINE Negative (Negative); BARBITURATE SCREEN, URINE Negative (Negative); BENZODIAZEPINE SCREEN, URINE Negative (Negative); CANNABINOID SCREEN, URINE Positive (Negative); METHADONE SCREEN, URINE Negative (Negative); OPIATE SCREEN, URINE Positive (Negative)
[2021-02-12 06:12] LABS: COCAINE SCREEN, URINE Negative (Negative)
[2021-02-12 08:00] VITALS: BP 123/77
[2021-02-12 09:59] LABS: BASOPHILS % (AUTO) 1 % (0-1); EOSINOPHILS % (AUTO) 4 % (1-7); LYMPHOCYTES % (AUTO) 57 % (22-44); MEAN CORPUSCULAR HEMOGLOBIN 31.9 pg (27.5-34.5); MEAN CORPUSCULAR HGB CONC 33.9 g/dL (33.2-36.2); MEAN PLATELET VOLUME 7.1 fL (7.4-10.4); MONOCYTES % (AUTO) 17 % (2-9); NEUTROPHILS % (AUTO) 22 % (42-75); PLATELET COUNT 245 x10^3/uL (130-400); RED BLOOD COUNT 3.45 x10^6/uL (4.38-5.82)
[2021-02-12] MEDS: RIFAXIMIN 550 MG TABLET PO SCH (09:59)
[2021-02-12 10:05] LABS: ALANINE AMINOTRANSFERASE 39 U/L (12-78); ALBUMIN 1.6 g/dL (3.4-5.0); ANION GAP 6 mmol/L (5-15); CALCIUM 8.8 mg/dL (8.5-10.1); CHLORIDE 117 mmol/L (98-107); CREATININE 0.99 mg/dL (0.7-1.3)
[2021-02-12 10:07] LABS: ALKALINE PHOSPHATASE 97 U/L (45-117); BILIRUBIN,TOTAL 1.3 mg/dL (0.2-1.0); TOTAL PROTEIN 6.7 g/dL (6.4-8.2)
[2021-02-12] MEDS: FONDAPARINUX 2.5 MG/0.5 ML SQ SCH (10:07)
[2021-02-12] MEDS ORDERED: GLUCAGON 1 MG IM PRN (11:00)
[2021-02-12] MEDS ORDERED: DEXTROSE 50%, 50ML SYRINGE IVPush PRN (11:00)
[2021-02-12] MEDS ORDERED: DEXTROSE 4 GM TAB.CHEW PO PRN (11:00)
[2021-02-12] MEDS: FLUCONAZOLE 200 MG/100 ML 100 ML IV SCH (11:02)
[2021-02-12] MEDS: DEXTROSE 5% 1,000 ML IV SCH (11:02)
[2021-02-12] MEDS: SODIUM CHLORIDE FLUSH 10ML SYR IVF SCH ×2 (11:02→21:07)
[2021-02-12 11:38] LABS: MEAN CORPUSCULAR HEMOGLOBIN 31.7 pg (27.5-34.5); MEAN PLATELET VOLUME 6.8 fL (7.4-10.4); PLATELET COUNT 231 x10^3/uL (130-400); RED BLOOD COUNT 3.51 x10^6/uL (4.38-5.82); RED CELL DISTRIBUTION WIDTH 16.6 % (9.4-14.8)
[2021-02-12 12:41] LABS: EOS#(MANUAL) 0.25 x10^3/uL (0.0-0.4); EOS% (MANUAL) 6 % (1-7)
[2021-02-12 12:51] LABS: BAND#(MANUAL) 0.04 x10^3/uL; BANDS%(MANUAL) 1 % (0-7)
[2021-02-12 12:52] LABS: LYMPH#(MANUAL) 2.38 x10^3/uL (1-3.4); LYMPHS% (MANUAL) 58 % (22-44); MONOS#(MANUAL) 0.41 x10^3/uL (0.3-2.7); MONOS% (MANUAL) 10 % (2-9); SEG#(MANUAL) 1.03 x10^3/uL (1.8-6.8); SEGS% (MANUAL) 25 % (42-75)
[2021-02-12 12:53] LABS: <PLATELET ESTIMATE> ADEQUATE; <PLT MORPHOLOGY> NORMAL PLT MORPH; <RBC MORPHOLOGY> NORMAL; POLYCHROMASIA 1+
[2021-02-12 13:20] VITALS: BP 120/77
[2021-02-12 21:24] VITALS: BP 123/80
[2021-02-12] MEDS ORDERED: HALOPERIDOL 5 MG/ML IM STA (23:34)
[2021-02-13 02:58] VITALS: BP 117/74
[2021-02-13] MEDS: AMPICILLIN/SULBACTAM 3 GM in SODIUM CHLORIDE 0.9% 100 ML IV SCH ×2 (06:17→17:29)
[2021-02-13] MEDS: DEXTROSE 5% 1,000 ML IV SCH (07:00)
[2021-02-13 07:32] LABS: MEAN CORPUSCULAR HEMOGLOBIN 31.6 pg (27.5-34.5); MEAN CORPUSCULAR HGB CONC 33.5 g/dL (33.2-36.2); MEAN PLATELET VOLUME 6.9 fL (7.4-10.4); PLATELET COUNT 243 x10^3/uL (130-400); RED BLOOD COUNT 3.64 x10^6/uL (4.38-5.82); RED CELL DISTRIBUTION WIDTH 17.8 % (9.4-14.8)
[2021-02-13 07:36] LABS: CALCIUM 8.5 mg/dL (8.5-10.1); CHLORIDE 115 mmol/L (98-107); CREATININE 1.03 mg/dL (0.7-1.3)
[2021-02-13 07:38] LABS: ANION GAP 8 mmol/L (5-15)
[2021-02-13 08:00] LABS: EOS#(MANUAL) 0.43 x10^3/uL (0.0-0.4); EOS% (MANUAL) 8 % (1-7); LYMPH#(MANUAL) 2.97 x10^3/uL (1-3.4); LYMPHS% (MANUAL) 55 % (22-44); MONOS#(MANUAL) 0.59 x10^3/uL (0.3-2.7); MONOS% (MANUAL) 11 % (2-9); SEGS% (MANUAL) 26 % (42-75)
[2021-02-13 08:02] LABS: <PLATELET ESTIMATE> ADEQUATE; <PLT MORPHOLOGY> NORMAL PLT MORPH; POLYCHROMASIA 1+
[2021-02-13] MEDS ORDERED: QUETIAPINE 25MG TABLET PO SCH (09:00)
[2021-02-13] MEDS: SODIUM CHLORIDE FLUSH 10ML SYR IVF SCH (09:57)
[2021-02-13] MEDS: FONDAPARINUX 2.5 MG/0.5 ML SQ SCH (09:57)
[2021-02-13] MEDS: RIFAXIMIN 550 MG TABLET PO SCH (09:58)
[2021-02-13] MEDS: LACTULOSE 10 GM/15 ML UDC PO SCH ×2 (09:58→22:58)
[2021-02-13 10:31] VITALS: BP 124/82
[2021-02-13 11:09] LABS: AMPHETAMINE SCREEN, URINE Negative (Negative); BARBITURATE SCREEN, URINE Negative (Negative); BENZODIAZEPINE SCREEN, URINE Negative (Negative); CANNABINOID SCREEN, URINE Positive (Negative); COCAINE SCREEN, URINE Negative (Negative); METHADONE SCREEN, URINE Negative (Negative); OPIATE SCREEN, URINE Positive (Negative)
[2021-02-13] MEDS: FLUCONAZOLE 200 MG/100 ML 100 ML IV SCH (12:06)
[2021-02-13 13:01] VITALS: BP 129/87
[2021-02-13] MEDS ORDERED: HALOPERIDOL 5 MG/ML IM PRN ×2 (15:00→15:30)
[2021-02-13] MEDS: QUETIAPINE 25MG TABLET PO SCH (17:31)
[2021-02-13 20:30] VITALS: BP 116/74
[2021-02-14] MEDS: QUETIAPINE 25MG TABLET PO SCH ×4 (00:25→18:08)
[2021-02-14] MEDS: AMPICILLIN/SULBACTAM 3 GM in SODIUM CHLORIDE 0.9% 100 ML IV SCH ×4 (01:21→19:21)
[2021-02-14] MEDS: SODIUM CHLORIDE FLUSH 10ML SYR IVF SCH ×3 (01:26→20:56)
[2021-02-14 02:00] VITALS: BP 100/66
[2021-02-14] MEDS: DEXTROSE 5% 1,000 ML IV SCH (03:37)
[2021-02-14 05:29] LABS: MICROSCOPIC NOT IND
[2021-02-14] MEDS: RIFAXIMIN 550 MG TABLET PO SCH (09:00)
[2021-02-14] MEDS: FLUCONAZOLE 200 MG/100 ML 100 ML IV SCH (11:52)
[2021-02-14] MEDS: FONDAPARINUX 2.5 MG/0.5 ML SQ SCH (12:00)
[2021-02-14] MEDS: LACTULOSE 10 GM/15 ML UDC PO SCH ×2 (12:00→22:02)
[2021-02-14 18:38] VITALS: BP 108/74
[2021-02-14] MEDS: ACETAMINOPHEN 325 MG TABLET PO PRN (21:30)
[2021-02-15] MEDS: QUETIAPINE 25MG TABLET PO SCH ×2 (00:13→10:37)
[2021-02-15] MEDS: AMPICILLIN/SULBACTAM 3 GM in SODIUM CHLORIDE 0.9% 100 ML IV SCH ×4 (01:01→19:54)
[2021-02-15 01:49] VITALS: BP 91/56
[2021-02-15 06:29] LABS: BASOPHILS % (AUTO) 0 % (0-1); EOSINOPHILS % (AUTO) 6 % (1-7); LYMPHOCYTES % (AUTO) 54 % (22-44); MEAN CORPUSCULAR HEMOGLOBIN 31.8 pg (27.5-34.5); MEAN CORPUSCULAR HGB CONC 33.4 g/dL (33.2-36.2); MEAN PLATELET VOLUME 6.9 fL (7.4-10.4); MONOCYTES % (AUTO) 13 % (2-9); NEUTROPHILS % (AUTO) 26 % (42-75); PLATELET COUNT 217 x10^3/uL (130-400); RED BLOOD COUNT 3.48 x10^6/uL (4.38-5.82); RED CELL DISTRIBUTION WIDTH 17.3 % (9.4-14.8)
[2021-02-15 09:35] VITALS: BP 100/68
[2021-02-15] MEDS: DEXTROSE 5% 1,000 ML IV SCH (10:36)
[2021-02-15] MEDS: LACTULOSE 10 GM/15 ML UDC PO SCH ×2 (10:37→20:52)
[2021-02-15] MEDS: RIFAXIMIN 550 MG TABLET PO SCH (10:37)
[2021-02-15] MEDS: SODIUM CHLORIDE FLUSH 10ML SYR IVF SCH ×2 (10:37→21:13)
[2021-02-15] MEDS: FONDAPARINUX 2.5 MG/0.5 ML SQ SCH (10:38)
[2021-02-15] MEDS: FLUCONAZOLE 200 MG/100 ML 100 ML IV SCH (11:47)
[2021-02-15 13:33] VITALS: BP 97/63
[2021-02-15] MEDS ORDERED: QUETIAPINE 25MG TABLET PO PRN (14:30)
[2021-02-15 19:01] VITALS: BP 116/74
[2021-02-16] MEDS: AMPICILLIN/SULBACTAM 3 GM in SODIUM CHLORIDE 0.9% 100 ML IV SCH ×4 (02:10→20:29)
[2021-02-16 03:59] VITALS: BP 97/59
[2021-02-16 07:00] VITALS: BP 99/64
[2021-02-16] MEDS: LACTULOSE 10 GM/15 ML UDC PO SCH ×2 (09:00→20:26)
[2021-02-16] MEDS: DEXTROSE 5% 1,000 ML IV SCH (09:12)
[2021-02-16] MEDS: RIFAXIMIN 550 MG TABLET PO SCH (09:12)
[2021-02-16] MEDS: SODIUM CHLORIDE FLUSH 10ML SYR IVF SCH ×2 (09:12→20:35)
[2021-02-16] MEDS: FONDAPARINUX 2.5 MG/0.5 ML SQ SCH (09:12)
[2021-02-16] MEDS: FLUCONAZOLE 200 MG TABLET PO SCH (09:12)
[2021-02-16 12:30] VITALS: BP 108/72
[2021-02-16] MEDS: MELATONIN 5 MG TABLET PO PRN (20:30)
[2021-02-16 20:58] VITALS: BP 110/72
[2021-02-17 00:06] VITALS: BP 107/68
[2021-02-17] MEDS: AMPICILLIN/SULBACTAM 3 GM in SODIUM CHLORIDE 0.9% 100 ML IV SCH ×4 (02:21→19:53)
[2021-02-17 04:31] LABS: MICROSCOPIC NOT IND
[2021-02-17] MEDS: FLUCONAZOLE 200 MG TABLET PO SCH (08:47)
[2021-02-17] MEDS: SODIUM CHLORIDE FLUSH 10ML SYR IVF SCH ×2 (08:47→19:52)
[2021-02-17] MEDS: LACTULOSE 10 GM/15 ML UDC PO SCH ×2 (08:47→19:53)
[2021-02-17] MEDS: RIFAXIMIN 550 MG TABLET PO SCH (08:47)
[2021-02-17] MEDS: FONDAPARINUX 2.5 MG/0.5 ML SQ SCH (08:48)
[2021-02-17 14:06] VITALS: BP 121/79
[2021-02-17] MEDS: MELATONIN 5 MG TABLET PO PRN (19:52)
[2021-02-17 20:04] VITALS: BP 113/78
[2021-02-18 00:21] VITALS: BP 124/81
[2021-02-18] MEDS: DEXTROSE 5% 1,000 ML IV SCH ×2 (02:27→05:00)
[2021-02-18] MEDS: AMPICILLIN/SULBACTAM 3 GM in SODIUM CHLORIDE 0.9% 100 ML IV SCH ×2 (02:27→08:49)
[2021-02-18 06:44] VITALS: BP 131/79
[2021-02-18] MEDS: RIFAXIMIN 550 MG TABLET PO SCH (08:49)
[2021-02-18] MEDS: FLUCONAZOLE 200 MG TABLET PO SCH (08:49)
[2021-02-18] MEDS: SODIUM CHLORIDE FLUSH 10ML SYR IVF SCH ×2 (08:56→21:00)
[2021-02-18] MEDS: LACTULOSE 10 GM/15 ML UDC PO SCH ×2 (09:00→21:00)
[2021-02-18 13:30] VITALS: BP 119/79
[2021-02-18] MEDS: FONDAPARINUX 2.5 MG/0.5 ML SQ SCH (14:34)
[2021-02-18] MEDS ORDERED: ONDANSETRON ODT 4 MG PO PRN (17:30)
[2021-02-18 20:00] VITALS: BP 119/78
[2021-02-18] MEDS: MELATONIN 5 MG TABLET PO PRN (21:01)
[2021-02-19] MEDS: AMPICILLIN/SULBACTAM 3 GM in SODIUM CHLORIDE 0.9% 100 ML IV SCH ×4 (02:00→22:44)
[2021-02-19] MEDS: ACETAMINOPHEN 325 MG TABLET PO PRN (03:46)
[2021-02-19 07:06] VITALS: BP 107/67
[2021-02-19] MEDS: FONDAPARINUX 2.5 MG/0.5 ML SQ SCH (08:31)
[2021-02-19] MEDS: RIFAXIMIN 550 MG TABLET PO SCH (08:32)
[2021-02-19] MEDS: FLUCONAZOLE 200 MG TABLET PO SCH (08:32)
[2021-02-19] MEDS: SODIUM CHLORIDE FLUSH 10ML SYR IVF SCH ×2 (08:32→21:00)
[2021-02-19] MEDS: LACTULOSE 10 GM/15 ML UDC PO SCH ×2 (08:32→21:00)
[2021-02-19] MEDS: DEXTROSE 5% 1,000 ML IV SCH ×2 (09:00→22:43)
[2021-02-19 13:43] VITALS: BP 110/70
[2021-02-19 19:29] VITALS: BP 139/90
[2021-02-19] MEDS: MELATONIN 5 MG TABLET PO PRN (22:45)
[2021-02-20 00:17] VITALS: BP 123/84
[2021-02-20] MEDS: AMPICILLIN/SULBACTAM 3 GM in SODIUM CHLORIDE 0.9% 100 ML IV SCH (02:00)
[2021-02-20 08:35] VITALS: BP 129/86
[2021-02-20] MEDS: FLUCONAZOLE 200 MG TABLET PO SCH (08:43)
[2021-02-20] MEDS: LACTULOSE 10 GM/15 ML UDC PO SCH ×2 (08:43→20:56)
[2021-02-20] MEDS: RIFAXIMIN 550 MG TABLET PO SCH (08:43)
[2021-02-20] MEDS: SODIUM CHLORIDE FLUSH 10ML SYR IVF SCH ×2 (08:43→20:57)
[2021-02-20] MEDS: FONDAPARINUX 2.5 MG/0.5 ML SQ SCH (08:43)
[2021-02-20 12:18] VITALS: BP 137/88
[2021-02-20 19:58] VITALS: BP 132/87
[2021-02-20] MEDS: DEXTROSE 5% 1,000 ML IV SCH (23:36)
[2021-02-21] MEDS: MELATONIN 5 MG TABLET PO PRN (00:25)
[2021-02-21 01:25] VITALS: BP 115/72
[2021-02-21 07:45] VITALS: BP 129/91
[2021-02-21] MEDS: LACTULOSE 10 GM/15 ML UDC PO SCH ×2 (09:17→21:21)
[2021-02-21] MEDS: RIFAXIMIN 550 MG TABLET PO SCH (09:17)
[2021-02-21] MEDS: FLUCONAZOLE 200 MG TABLET PO SCH (09:17)
[2021-02-21] MEDS: FONDAPARINUX 2.5 MG/0.5 ML SQ SCH (09:17)
[2021-02-21] MEDS: SODIUM CHLORIDE FLUSH 10ML SYR IVF SCH ×2 (09:18→21:20)
[2021-02-21 13:26] VITALS: BP 135/85
[2021-02-21 20:39] VITALS: BP 122/82
[2021-02-22 01:36] VITALS: BP 110/67
[2021-02-22] MEDS: MELATONIN 5 MG TABLET PO PRN ×2 (01:49→21:12)
[2021-02-22 08:45] VITALS: BP 116/67
[2021-02-22] MEDS: SODIUM CHLORIDE FLUSH 10ML SYR IVF SCH ×3 (09:00→21:00)
[2021-02-22] MEDS: FLUCONAZOLE 200 MG TABLET PO SCH (09:44)
[2021-02-22] MEDS: LACTULOSE 10 GM/15 ML UDC PO SCH ×2 (09:44→21:12)
[2021-02-22] MEDS: RIFAXIMIN 550 MG TABLET PO SCH (09:44)
[2021-02-22] MEDS: FONDAPARINUX 2.5 MG/0.5 ML SQ SCH (11:06)
[2021-02-22 14:21] VITALS: BP 126/75
[2021-02-22 18:17] VITALS: BP 125/76
[2021-02-23 01:53] VITALS: BP 123/69
[2021-02-23 07:50] VITALS: BP 119/71
[2021-02-23] MEDS: SODIUM CHLORIDE FLUSH 10ML SYR IVF SCH ×2 (09:44→20:24)
[2021-02-23] MEDS: FLUCONAZOLE 200 MG TABLET PO SCH (09:44)
[2021-02-23] MEDS: RIFAXIMIN 550 MG TABLET PO SCH (09:44)
[2021-02-23] MEDS: LACTULOSE 10 GM/15 ML UDC PO SCH ×2 (09:44→20:23)
[2021-02-23] MEDS: FONDAPARINUX 2.5 MG/0.5 ML SQ SCH (09:44)
[2021-02-23 13:01] VITALS: BP 124/72
[2021-02-23 18:50] VITALS: BP 123/77
[2021-02-23] MEDS: MELATONIN 5 MG TABLET PO PRN (20:23)
[2021-02-24 07:02] VITALS: BP 129/79
[2021-02-24] MEDS: FLUCONAZOLE 200 MG TABLET PO SCH (09:55)
[2021-02-24] MEDS: RIFAXIMIN 550 MG TABLET PO SCH (09:55)
[2021-02-24] MEDS: LACTULOSE 10 GM/15 ML UDC PO SCH ×2 (09:55→21:04)
[2021-02-24] MEDS: FONDAPARINUX 2.5 MG/0.5 ML SQ SCH (10:54)
[2021-02-24 13:31] VITALS: BP 161/79
[2021-02-24 19:26] VITALS: BP 124/82
[2021-02-24] MEDS: MELATONIN 5 MG TABLET PO PRN (21:05)
[2021-02-25 00:12] VITALS: BP 134/88
[2021-02-25] MEDS: LACTULOSE 10 GM/15 ML UDC PO SCH (07:16)
[2021-02-25] MEDS: RIFAXIMIN 550 MG TABLET PO SCH (07:16)
[2021-02-25] MEDS: FLUCONAZOLE 200 MG TABLET PO SCH (07:17)
[2021-02-25 09:01] VITALS: BP 120/76
[2021-02-25] MEDS: ACETAMINOPHEN 325 MG TABLET PO PRN (09:35)
[2021-02-25] MEDS: FONDAPARINUX 2.5 MG/0.5 ML SQ SCH (09:35)
[2021-02-25] MEDS ORDERED: LACT20SO13 PO (14:04)
[2021-02-25] MEDS ORDERED: RIFA550T4 PO (14:04)
[2021-02-25] MEDS ORDERED: CARV6.2512 PO (14:04)
== END 2021-02-25 17:20 | disposition home or self-care (01) | DRG 383 ==
LOC: ED 07:00 → EDIP 07:14 → ED 07:51 → 3N 08:41
PROVIDERS: ADMIT Emergency Medicine; ATTEND Hospitalist
DX: L03.311 Cellulitis of abdominal wall (principal); G93.41 Metabolic encephalopathy; E11.649 Type 2 diabetes mellitus with hypoglycemia without coma; E11.610 Type 2 diabetes mellitus with diabetic neuropathic arthropathy; F03.91 Unspecified dementia, unspecified severity, with behavioral disturbance; D70.9 Neutropenia, unspecified; I11.0 Hypertensive heart disease with heart failure; K72.90 Hepatic failure, unspecified without coma; L97.509 Non-pressure chronic ulcer of other part of unspecified foot with unspecified severity; K74.60 Unspecified cirrhosis of liver; I25.10 Atherosclerotic heart disease of native coronary artery without angina pectoris; I50.32 Chronic diastolic (congestive) heart failure; I87.2 Venous insufficiency (chronic) (peripheral); J45.909 Unspecified asthma, uncomplicated; G89.29 Other chronic pain; M21.962 Unspecified acquired deformity of left lower leg; M19.079 Primary osteoarthritis, unspecified ankle and foot; F41.1 Generalized anxiety disorder; F39 Unspecified mood [affective] disorder; F17.210 Nicotine dependence, cigarettes, uncomplicated; E11.51 Type 2 diabetes mellitus with diabetic peripheral angiopathy without gangrene; E11.621 Type 2 diabetes mellitus with foot ulcer; R56.9 Unspecified convulsions; F15.90 Other stimulant use, unspecified, uncomplicated; D64.9 Anemia, unspecified; B19.20 Unspecified viral hepatitis C without hepatic coma; Z99.11 Dependence on respirator [ventilator] status; I25.2 Old myocardial infarction; Z99.3 Dependence on wheelchair; Z86.73 Personal history of transient ischemic attack (TIA), and cerebral infarction without residual deficits; Z78.1 Physical restraint status; Z83.3 Family history of diabetes mellitus; Z59.0 Homelessness
CPT/HCPCS: 36415; 70450; 71045; 80048; 80053; 80299; 80307; 80320; 80329; 81001; 81003; 82140; 82962; 83735; 84100; 84145; 84443; 85025; 85610; 85651; 86140; 87077; 87086; 87186; 93005; 93970; 96372; 96374; 99283; 99285; G0378; J0295; J2405; J7070; Q0162; 92523-GN; G0480; J1450; J1630; J1652; J2270

== ENCOUNTER 2021-02-26 15:49 | Emergency (ER) | payer MEDICAID ==
[~2021-02-26] VITALS: Ht 170.2 cm; Wt 108.7 kg
[2021-02-26 23:17] VITALS: BP 149/80
== END 2021-02-26 23:19 | disposition home or self-care (01) ==
LOC: ED 22:53
DX: I10 Essential (primary) hypertension (principal); Z76.0 Encounter for issue of repeat prescription; R60.0 Localized edema; Z72.9 Problem related to lifestyle, unspecified; F17.200 Nicotine dependence, unspecified, uncomplicated
CPT/HCPCS: 99283

== ENCOUNTER 2021-03-09 14:47 | Emergency (ER) | payer MEDICAID ==
[~2021-03-09] VITALS: Ht 180.3 cm; Wt 110.0 kg
[2021-03-09] MEDS ORDERED: SODIUM CHLORIDE FLUSH 10ML SYR IVF ONE (15:00)
[2021-03-09] MEDS ORDERED: SODIUM CHLORIDE 0.9% 1,000ML IVBOLUS ONE (15:00)
--- NOTE | 2021-03-09 15:07 | NUR ---
PT SITTING UP IN BED, IVF FROM [facility] 1000 ML. NAD NOTED AT THIS TIME. REPORT TO JACKIE. CANTOR.
--- NOTE | 2021-03-09 15:10 | NUR ---
Bedside report received from DEVAUGHN Sarkar. Assumed care of patient. Pt currently resting on gurney. No apparent distress ntoed. Call light within reach. Will cont to monitor pt.
--- NOTE | 2021-03-09 15:19 | NUR ---
MARINA Hodges at bedside for eval.
[2021-03-09 15:27] LABS: MEAN CORPUSCULAR HEMOGLOBIN 31.3 pg (27.5-34.5); MEAN CORPUSCULAR HGB CONC 33.6 g/dL (33.2-36.2); MEAN PLATELET VOLUME 7.5 fL (7.4-10.4); PLATELET COUNT 117 x10^3/uL (130-400); RED BLOOD COUNT 3.52 x10^6/uL (4.38-5.82); RED CELL DISTRIBUTION WIDTH 16.7 % (9.4-14.8)
[2021-03-09 15:39] LABS: ALANINE AMINOTRANSFERASE 43 U/L (12-78); ALBUMIN 1.4 g/dL (3.4-5.0); ANION GAP 9 mmol/L (5-15); CHLORIDE 114 mmol/L (98-107); CREATININE 1.38 mg/dL (0.7-1.3)
[2021-03-09 15:43] LABS: ALKALINE PHOSPHATASE 91 U/L (45-117); BILIRUBIN,TOTAL 0.9 mg/dL (0.2-1.0); TOTAL PROTEIN 6.5 g/dL (6.4-8.2); TROPONIN I < 0.015 ng/mL (0.000-0.045)
[2021-03-09 15:51] LABS: LYMPH#(MANUAL) 0.63 x10^3/uL (1-3.4); LYMPHS% (MANUAL) 30 % (22-44); MONOS#(MANUAL) 0.21 x10^3/uL (0.3-2.7); MONOS% (MANUAL) 10 % (2-9); MYELOCYTES# (MANUAL) 0.02 x10^3/uL (0-0); MYELOCYTES% (MANUAL) 1 % (0-0); SEG#(MANUAL) 1.24 x10^3/uL (1.8-6.8); SEGS% (MANUAL) 59 % (42-75)
[2021-03-09 15:52] LABS: <PLATELET ESTIMATE> DECREASED; <PLT MORPHOLOGY> NORMAL PLT MORPH; ANISOCYTOSIS 1+; INTERNATIONAL NORMALIZED RATIO 1.27 (0.93-1.1); MICROCYTOSIS 1+; PROTHROMBIN TIME 13.4 Seconds (9.6-11.5)
--- NOTE | 2021-03-09 16:00 | NUR ---
Pt currently sleeping on [employer]. No apparent distress noted. Bleeding from nose controlled at this time. Pt on cont bp, cardiac and SPO2 monitors. Call light within reach. Will cont to monitor pt.
--- NOTE | 2021-03-09 17:27 | NUR ---
Pt provided with new pants, shirt and a walker per patient request.
--- NOTE | 2021-03-09 18:08 | NUR ---
Pt provided with cab voucher and cup of coffee per patients request. Pt steady upon ambulation with walker to dc desk.
[2021-03-09 18:40] VITALS: BP 115/68
== END 2021-03-09 18:42 | disposition home or self-care (01) ==
LOC: ED 16:45
DX: R04.0 Epistaxis (principal); I87.8 Other specified disorders of veins; I10 Essential (primary) hypertension; F17.200 Nicotine dependence, unspecified, uncomplicated
CPT/HCPCS: 36415; 80053; 84484; 85025; 85610; 85730; 96360; 99285; J7030